=== PATIENT | male | born 1965 | race Caucasian/White ===

== ENCOUNTER 2018-07-04 15:57 | Emergency (ER) | payer OTHER ==
[~2018-07-04] VITALS: Ht 177.8 cm; Wt 68.2 kg
[2018-07-04] MEDS ORDERED: KETOROLAC TROMETHAMINE 10 MG TAB PO ONE (16:30)
--- NOTE | 2018-07-04 17:09 | REP ---
LEFT HUMERUS; TWO VIEWS: HUMERUS: There is no evidence of an acute fracture, dislocation or intrinsic bone disease. IMPRESSION: No fracture or dislocation. Electronically Signed by Padilla Puente MD 07/04/2018 11:50 P
[2018-07-04] MEDS ORDERED: KETO10TAB PO (17:19)
[2018-07-04 17:23] VITALS: BP 135/77
== END 2018-07-04 17:29 | disposition home or self-care (01) ==
LOC: M ED 15:57
DX: S46.912A Strain of unspecified muscle, fascia and tendon at shoulder and upper arm level, left arm, initial encounter (principal); X50.0XXA Overexertion from strenuous movement or load, initial encounter; Y92.018 Other place in single-family (private) house as the place of occurrence of the external cause; Z91.013 Allergy to seafood

== ENCOUNTER 2023-01-05 18:56 | Emergency (ER) | payer OTHER, SELFPAY ==
[~2023-01-05] VITALS: Ht 175.3 cm; Wt 62.7 kg
[~2023-01-05 18:56] MED LIST: KETO10TAB PO
[2023-01-05] MEDS ORDERED: IBUP80TA PO (19:20)
[2023-01-05 22:59] VITALS: BP 121/80; TEMP 97.7; O2SAT 99
== END 2023-01-06 03:45 | disposition home or self-care (01) ==
LOC: M ED 18:56
DX: S82.034A Nondisplaced transverse fracture of right patella, initial encounter for closed fracture (principal); M25.461 Effusion, right knee; W55.22XA Struck by cow, initial encounter; Y92.009 Unspecified place in unspecified non-institutional (private) residence as the place of occurrence of the external cause; Z91.013 Allergy to seafood

== ENCOUNTER 2023-02-12 10:30 | Inpatient (IN) | payer OTHER, MEDICAID ==
[~2023-02-12] VITALS: Ht 177.8 cm; Wt 45.0 kg
[~2023-02-12 10:30] MED LIST changes: +IBUP80TA PO
[2023-02-12] MEDS ORDERED: GABA-282 (10:42)
[2023-02-12 11:12] LABS: BASO % 0.4 % (0.0-1.0); EOS % 0.3 % (0.0-3.0); HEMATOCRIT 35.7 % (42.0-52.0); HEMOGLOBIN 11.5 g/dl (13.5-17.5); LYMPH # 0.9 10^3/uL (1.5-5.0); LYMPH % 13.4 % (24.0-44.0); MEAN CORPUSCULAR HEMOGLOBIN 30.3 pg (27.0-33.0); MEAN CORPUSCULAR HGB CONC 32.2 g/dl (32.0-36.5); MEAN CORPUSCULAR VOLUME 94.2 fl (80.0-96.0); MONO # 0.6 10^3/uL (0.0-0.8); MONO % 8.7 % (2.0-8.0); NEUTROPHILS # 5.2 10^3/uL (1.5-8.5); NEUTROPHILS % 76.9 % (36.0-66.0); PLATELET COUNT, AUTOMATED 416 10^3/uL (150-450); RED BLOOD COUNT 3.79 10^6/uL (4.30-6.10); WHITE BLOOD COUNT 6.8 10^3/uL (4.0-10.0)
[2023-02-12 11:38] LABS: ALKALINE PHOSPHATASE 115 U/L (46-116); ALT/SGPT 21 U/L (7.0-40); AST/SGOT 50 U/L (<34); BILIRUBIN,DIRECT 0.2 MG/DL (<0.4); BILIRUBIN,TOTAL 0.5 MG/DL (0.3-1.2); BLOOD UREA NITROGEN 17 MG/DL (9-23); CALCIUM LEVEL 8.7 MG/DL (8.5-10.1); CARBON DIOXIDE LEVEL 28 MMOL/L (20-31); CHLORIDE LEVEL 104 MMOL/L (98-107); CREATININE FOR GFR 0.64 MG/DL (0.70-1.30); GLOMERULAR FILTRATION RATE > 60.0 (>56); GLUCOSE, FASTING 81 MG/DL (60-100); POTASSIUM SERUM 4.1 MMOL/L (3.5-5.1); SODIUM LEVEL 142 MMOL/L (136-145)
[2023-02-12 11:40] LABS: THYROID STIMULATING HORMONE 2.152 uIU/ML (0.55-4.78)
[2023-02-12 12:04] LABS: RSV AMPLIFICATION NEGATIVE (NEGATIVE)
[2023-02-12] MEDS ORDERED: LIDOCAINE 2% 5ML JELLY UROJET TOP ONE (12:25)
[2023-02-12] MEDS ORDERED: MED REC IN PROGRESS XX SCH (14:15)
[2023-02-12] MEDS ORDERED: MED REC CURRENTLY UNOBTAINABLE XX SCH (14:20)
[2023-02-12 14:27] LABS: BARBITURATES URINE NEGATIVE (NEGATIVE); COCAINE METABOLITE URINE NEGATIVE (NEGATIVE); METHADONE URINE NEGATIVE (NEGATIVE); OPIATES URINE NEGATIVE (NEGATIVE); PHENCYCLIDINE URINE NEGATIVE (NEGATIVE)
[2023-02-12 14:28] LABS: AMPHETAMINES LEVEL URINE NEGATIVE (NEGATIVE); BENZODIAZEPINES URINE NEGATIVE (NEGATIVE); CANNABINOIDS URINE NEGATIVE (NEGATIVE)
[2023-02-12] MEDS: NS 1,000 ML IV SCH (14:35)
[2023-02-12 14:52] LABS: PROLACTIN 6.57 NG/ML (2.1-17.7)
[2023-02-12 14:53] LABS: VITAMIN B12 LEVEL 115 PG/ML (211-911)
[2023-02-12 15:00] VITALS: BP 124/79; TEMP 97.3; O2SAT 98
[2023-02-12] MEDS ORDERED: GABA-282 PO (15:02)
[2023-02-12 20:26] VITALS: BP 127/80; TEMP 97.2; O2SAT 96
[2023-02-12] MEDS: ENOXAPARIN 40MG/0.4ML SYRINGE (J1650 PER 10MG) SC SCH (21:52)
[2023-02-13 06:00] VITALS: BP 128/79; TEMP 97.7; O2SAT 95
[2023-02-13] MEDS: NS 1,000 ML IV SCH (10:59)
[2023-02-13] MEDS: ACETAMINOPHEN TAB 650MG DOSE (2X325MG) PO PRN ×2 (13:20→23:53)
[2023-02-13 14:00] VITALS: BP 106/64; TEMP 97.2; O2SAT 99
[2023-02-13 19:59] VITALS: BP 109/63; TEMP 96.6; O2SAT 95
[2023-02-13] MEDS: ENOXAPARIN 40MG/0.4ML SYRINGE (J1650 PER 10MG) SC SCH (21:11)
[2023-02-13 21:15] VITALS: TEMP 97.7
[2023-02-14 05:07] VITALS: BP 117/66; TEMP 97.9; O2SAT 98
[2023-02-14] MEDS: NS 1,000 ML IV SCH ×2 (05:48→22:07)
[2023-02-14] MEDS ORDERED: POTA99TA14 PO (07:06)
[2023-02-14] MEDS ORDERED: MAGN400T2 PO (07:06)
[2023-02-14] MEDS ORDERED: HOME MED LIST COMPLETE! XX SCH (07:10)
[2023-02-14 08:37] LABS: BASO % 0.3 % (0.0-1.0); EOS % 0.3 % (0.0-3.0); HEMATOCRIT 34.1 % (42.0-52.0); HEMOGLOBIN 11.2 g/dl (13.5-17.5); LYMPH % 15.2 % (24.0-44.0); MEAN CORPUSCULAR HEMOGLOBIN 29.6 pg (27.0-33.0); MEAN CORPUSCULAR HGB CONC 32.8 g/dl (32.0-36.5); MEAN CORPUSCULAR VOLUME 90.2 fl (80.0-96.0); MONO # 0.3 10^3/uL (0.0-0.8); MONO % 5.5 % (2.0-8.0); NEUTROPHILS # 4.9 10^3/uL (1.5-8.5); NEUTROPHILS % 78.4 % (36.0-66.0); PLATELET COUNT, AUTOMATED 383 10^3/uL (150-450); RED BLOOD COUNT 3.78 10^6/uL (4.30-6.10); WHITE BLOOD COUNT 6.2 10^3/uL (4.0-10.0)
[2023-02-14 08:46] LABS: ERYTHROCYTE SEDIMENTATION RATE 97 mm/hr (0-20)
[2023-02-14 09:15] LABS: ALBUMIN 2.3 G/DL (3.2-5.2); ALKALINE PHOSPHATASE 100 U/L (46-116); ALT/SGPT 17 U/L (7.0-40); AST/SGOT 26 U/L (<34); BILIRUBIN,TOTAL 0.7 MG/DL (0.3-1.2); BLOOD UREA NITROGEN 12 MG/DL (9-23); CALCIUM LEVEL 7.6 MG/DL (8.5-10.1); CARBON DIOXIDE LEVEL 25 MMOL/L (20-31); CHLORIDE LEVEL 106 MMOL/L (98-107); CREATININE FOR GFR 0.63 MG/DL (0.70-1.30); GLOMERULAR FILTRATION RATE > 60.0 (>56); GLUCOSE, FASTING 124 MG/DL (60-100); POTASSIUM SERUM 3.6 MMOL/L (3.5-5.1); PROCALCITONIN 0.08 ng/ml; SODIUM LEVEL 138 MMOL/L (136-145); TOTAL PROTEIN 5.9 G/DL (5.7-8.2)
[2023-02-14] MEDS: CYANOCOBALAMIN 500 MCG TAB PO SCH ×2 (09:49→20:38)
[2023-02-14] MEDS ORDERED: LORazepam 2 MG/ML 1ML VIAL IV STA (11:56)
[2023-02-14 12:50] VITALS: BP 124/82; TEMP 97.7; O2SAT 97
[2023-02-14] MEDS ORDERED: ISOVUE-370 76% 100ML VIAL As Ordered ONE (16:24)
[2023-02-14] MEDS ORDERED: flumazeniL 0.5MG/5ML VIAL IV STA (16:32)
[2023-02-14 17:58] LABS: PROLACTIN 6.87 NG/ML (2.1-17.7)
[2023-02-14 17:59] LABS: ALBUMIN 2.2 G/DL (3.2-5.2); ALKALINE PHOSPHATASE 96 U/L (46-116); ALT/SGPT 16 U/L (7.0-40); AST/SGOT 26 U/L (<34); BILIRUBIN,TOTAL 0.5 MG/DL (0.3-1.2); BLOOD UREA NITROGEN 11 MG/DL (9-23); CALCIUM LEVEL 7.9 MG/DL (8.5-10.1); CARBON DIOXIDE LEVEL 27 MMOL/L (20-31); CHLORIDE LEVEL 104 MMOL/L (98-107); CREATININE FOR GFR 0.58 MG/DL (0.70-1.30); GLOMERULAR FILTRATION RATE > 60.0 (>56); GLUCOSE, FASTING 96 MG/DL (60-100); POTASSIUM SERUM 3.9 MMOL/L (3.5-5.1); SODIUM LEVEL 137 MMOL/L (136-145); TOTAL PROTEIN 5.6 G/DL (5.7-8.2)
[2023-02-14 20:00] VITALS: BP 130/81; TEMP 97.5; TEMP 98.4; O2SAT 99
[2023-02-14] MEDS: ENOXAPARIN 40MG/0.4ML SYRINGE (J1650 PER 10MG) SC SCH (20:39)
[2023-02-14] MEDS: ACETAMINOPHEN TAB 650MG DOSE (2X325MG) PO PRN (20:39)
[2023-02-14 20:43] VITALS: TEMP 97.5
[2023-02-15 00:20] VITALS: BP 121/74; TEMP 97.3; O2SAT 98
[2023-02-15 06:31] VITALS: BP 114/69; TEMP 97.5; O2SAT 97
[2023-02-15] MEDS: CYANOCOBALAMIN 500 MCG TAB PO SCH (08:23)
[2023-02-15 11:30] VITALS: BP 152/76
[2023-02-15 11:47] LABS: HEMATOCRIT 33.9 % (42.0-52.0)
[2023-02-15 11:48] LABS: BASO % 0.3 % (0.0-1.0); EOS % 0.2 % (0.0-3.0); HEMATOCRIT 33.6 % (42.0-52.0); HEMOGLOBIN 11.1 g/dl (13.5-17.5); LYMPH # 0.6 10^3/uL (1.5-5.0); LYMPH % 10.4 % (24.0-44.0); MEAN CORPUSCULAR HEMOGLOBIN 30.3 pg (27.0-33.0); MEAN CORPUSCULAR VOLUME 91.8 fl (80.0-96.0); MONO # 0.2 10^3/uL (0.0-0.8); MONO % 3.6 % (2.0-8.0); NEUTROPHILS # 5.2 10^3/uL (1.5-8.5); NEUTROPHILS % 85.2 % (36.0-66.0); PLATELET COUNT, AUTOMATED 340 10^3/uL (150-450); RED BLOOD COUNT 3.66 10^6/uL (4.30-6.10); WHITE BLOOD COUNT 6.1 10^3/uL (4.0-10.0)
[2023-02-15] MEDS: LACTULOSE 20GM/30ML SYRUP UDC PO SCH ×2 (11:57→13:04)
[2023-02-15 12:00] VITALS: BP 108/62; TEMP 97.5; O2SAT 99
[2023-02-15 12:05] LABS: ERYTHROCYTE SEDIMENTATION RATE 100 mm/hr (0-20)
[2023-02-15 12:13] LABS: ALBUMIN 2.3 G/DL (3.2-5.2); ALKALINE PHOSPHATASE 99 U/L (46-116); ALT/SGPT 12 U/L (7.0-40); AST/SGOT 22 U/L (<34); BILIRUBIN,TOTAL 0.4 MG/DL (0.3-1.2); BLOOD UREA NITROGEN 11 MG/DL (9-23); CALCIUM LEVEL 7.9 MG/DL (8.5-10.1); CARBON DIOXIDE LEVEL 26 MMOL/L (20-31); CHLORIDE LEVEL 102 MMOL/L (98-107); CREATININE FOR GFR 0.61 MG/DL (0.70-1.30); GLOMERULAR FILTRATION RATE > 60.0 (>56); GLUCOSE, FASTING 103 MG/DL (60-100); POTASSIUM SERUM 4.1 MMOL/L (3.5-5.1); SODIUM LEVEL 136 MMOL/L (136-145); TOTAL PROTEIN 5.9 G/DL (5.7-8.2)
[2023-02-15 14:00] VITALS: BP 112/70; TEMP 97.3; O2SAT 97
[2023-02-15 18:43] LABS: PROCALCITONIN 0.31 ng/ml
[2023-02-15] MEDS: ENOXAPARIN 40MG/0.4ML SYRINGE (J1650 PER 10MG) SC SCH (21:17)
[2023-02-15 21:20] VITALS: BP 100/65; TEMP 98.1; O2SAT 95
[2023-02-15] MEDS: NS 1,000 ML IV SCH ×2 (22:35→22:39)
[2023-02-16 06:05] VITALS: BP 89/54; TEMP 97.2; O2SAT 99
[2023-02-16 06:19] VITALS: BP 92/50; O2SAT 97
[2023-02-16 07:48] LABS: HEMOGLOBIN 10.4 g/dl (13.5-17.5); MEAN CORPUSCULAR HEMOGLOBIN 30.1 pg (27.0-33.0); MEAN CORPUSCULAR HGB CONC 32.5 g/dl (32.0-36.5); MEAN CORPUSCULAR VOLUME 92.5 fl (80.0-96.0); PLATELET COUNT, AUTOMATED 296 10^3/uL (150-450); RED BLOOD COUNT 3.46 10^6/uL (4.30-6.10); WHITE BLOOD COUNT 9.6 10^3/uL (4.0-10.0)
[2023-02-16 08:15] LABS: BLOOD UREA NITROGEN 11 MG/DL (9-23); CALCIUM LEVEL 7.8 MG/DL (8.3-10.6); CARBON DIOXIDE LEVEL 29 MMOL/L (20-31); CHLORIDE LEVEL 104 MMOL/L (98-107); CREATININE FOR GFR 0.69 MG/DL (0.70-1.30); GLOMERULAR FILTRATION RATE > 60.0 (>49); GLUCOSE, FASTING 94 MG/DL (74-106); POTASSIUM SERUM 3.9 MMOL/L (3.5-5.1); SODIUM LEVEL 139 MMOL/L (136-145)
[2023-02-16] MEDS ORDERED: NS 1,000 ML IV ONE (09:55)
[2023-02-16] MEDS: CYANOCOBALAMIN 1,000MCG/ML 1ML VIAL IM SCH (10:03)
[2023-02-16 11:26] LABS: PROCALCITONIN 48.43 ng/ml
[2023-02-16 14:00] VITALS: BP 101/58; TEMP 97.2; O2SAT 96
[2023-02-16 20:07] VITALS: BP 102/60; TEMP 97.5; O2SAT 100
[2023-02-16] MEDS: ENOXAPARIN 40MG/0.4ML SYRINGE (J1650 PER 10MG) SC SCH (20:32)
[2023-02-16 22:34] VITALS: BP 117/66; TEMP 98.1; O2SAT 99
[2023-02-16] MEDS ORDERED: QUEtiapine FUMARATE 25 MG TAB PO ONE (23:00)
[2023-02-17 05:41] VITALS: BP 110/69; TEMP 97.7; O2SAT 99
[2023-02-17 06:01] LABS: HEMATOCRIT 32.3 % (42.0-52.0); HEMOGLOBIN 10.9 g/dl (13.5-17.5); MEAN CORPUSCULAR HEMOGLOBIN 30.1 pg (27.0-33.0); MEAN CORPUSCULAR HGB CONC 33.7 g/dl (32.0-36.5); MEAN CORPUSCULAR VOLUME 89.2 fl (80.0-96.0); PLATELET COUNT, AUTOMATED 278 10^3/uL (150-450); RED BLOOD COUNT 3.62 10^6/uL (4.30-6.10); WHITE BLOOD COUNT 5.9 10^3/uL (4.0-10.0)
[2023-02-17] MEDS ORDERED: NS 1,000 ML IV ONE (08:00)
[2023-02-17] MEDS: CYANOCOBALAMIN 1,000MCG/ML 1ML VIAL IM SCH (08:13)
[2023-02-17] MEDS: DONEPEZIL 5 MG TAB PO SCH (08:13)
[2023-02-17 08:54] LABS: INR 1.08; PROTHROMBIN TIME 13.7 SECONDS (12.5-14.5)
[2023-02-17 08:55] LABS: PARTIAL THROMBOPLASTIN TIME 35.6 SECONDS (24.8-34.2)
[2023-02-17 11:50] VITALS: BP 113/66; TEMP 97; O2SAT 100
[2023-02-17 14:00] VITALS: BP 112/64; TEMP 97.7; O2SAT 100
[2023-02-17 14:13] LABS: BLOOD UREA NITROGEN 13 MG/DL (7-21); CARBON DIOXIDE LEVEL 20 MEQ/L (22-30); CHLORIDE LEVEL 103 MEQ/L (98-107); CREATININE FOR GFR 0.6 MG/DL (0.7-1.5); GLOMERULAR FILTRATION RATE > 60.0 (>49); GLUCOSE, FASTING 103 MG/DL; POTASSIUM SERUM 3.9 MEQ/L (3.6-5.0); SODIUM LEVEL 137 MEQ/L (134-153)
[2023-02-17 14:14] LABS: CALCIUM LEVEL 8.2 MG/DL (8.8-10.2)
[2023-02-17 19:40] VITALS: BP 108/66; TEMP 97.8; O2SAT 98
[2023-02-17] MEDS: ACETAMINOPHEN TAB 650MG DOSE (2X325MG) PO PRN (22:26)
[2023-02-18 01:49] VITALS: BP 119/71; TEMP 97.7; O2SAT 99
[2023-02-18 05:55] VITALS: BP 112/73; TEMP 97.9; O2SAT 99
[2023-02-18 06:00] LABS: BASO % 0.4 % (0.0-1.0); EOS % 0.6 % (0.0-3.0); HEMATOCRIT 33.6 % (42.0-52.0); HEMOGLOBIN 11.5 g/dl (13.5-17.5); LYMPH # 1.2 10^3/uL (1.5-5.0); LYMPH % 23.8 % (24.0-44.0); MEAN CORPUSCULAR HEMOGLOBIN 29.5 pg (27.0-33.0); MEAN CORPUSCULAR HGB CONC 34.2 g/dl (32.0-36.5); MEAN CORPUSCULAR VOLUME 86.2 fl (80.0-96.0); MONO # 0.5 10^3/uL (0.0-0.8); MONO % 10.3 % (2.0-8.0); NEUTROPHILS # 3.2 10^3/uL (1.5-8.5); NEUTROPHILS % 64.7 % (36.0-66.0); PLATELET COUNT, AUTOMATED 330 10^3/uL (150-450)
[2023-02-18 06:07] LABS: ERYTHROCYTE SEDIMENTATION RATE 91 mm/hr (0-20)
[2023-02-18] MEDS: DONEPEZIL 5 MG TAB PO SCH (09:56)
[2023-02-18] MEDS: CYANOCOBALAMIN 1,000MCG/ML 1ML VIAL IM SCH (09:56)
[2023-02-18] MEDS: ACETAMINOPHEN TAB 650MG DOSE (2X325MG) PO PRN (21:00)
[2023-02-19 05:30] VITALS: BP 113/74; TEMP 98.2; O2SAT 100
[2023-02-19 05:50] LABS: HEMATOCRIT 35.3 % (42.0-52.0); HEMOGLOBIN 11.9 g/dl (13.5-17.5); MEAN CORPUSCULAR HEMOGLOBIN 29.5 pg (27.0-33.0); MEAN CORPUSCULAR HGB CONC 33.7 g/dl (32.0-36.5); MEAN CORPUSCULAR VOLUME 87.6 fl (80.0-96.0); PLATELET COUNT, AUTOMATED 367 10^3/uL (150-450); RED BLOOD COUNT 4.03 10^6/uL (4.30-6.10); WHITE BLOOD COUNT 4.9 10^3/uL (4.0-10.0)
[2023-02-19] MEDS: DONEPEZIL 5 MG TAB PO SCH (08:24)
[2023-02-19] MEDS: CYANOCOBALAMIN 1,000MCG/ML 1ML VIAL IM SCH (08:24)
[2023-02-19 09:57] LABS: BLOOD UREA NITROGEN 9 MG/DL (7-21); CALCIUM LEVEL 8.3 MG/DL (8.8-10.2); CARBON DIOXIDE LEVEL 18 MEQ/L (22-30); CHLORIDE LEVEL 105 MEQ/L (98-107); CREATININE FOR GFR 0.5 MG/DL (0.7-1.5); GLOMERULAR FILTRATION RATE > 60.0 (>49); GLUCOSE, FASTING 113 MG/DL; POTASSIUM SERUM 3.5 MEQ/L (3.6-5.0); SODIUM LEVEL 138 MEQ/L (134-153)
[2023-02-19] MEDS: ACETAMINOPHEN TAB 650MG DOSE (2X325MG) PO PRN (21:40)
[2023-02-20 04:54] VITALS: BP 118/77; TEMP 96.8; O2SAT 98
[2023-02-20 05:52] LABS: HEMATOCRIT 38.2 % (42.0-52.0); HEMOGLOBIN 12.4 g/dl (13.5-17.5); MEAN CORPUSCULAR HEMOGLOBIN 28.8 pg (27.0-33.0); MEAN CORPUSCULAR HGB CONC 32.5 g/dl (32.0-36.5); MEAN CORPUSCULAR VOLUME 88.8 fl (80.0-96.0); PLATELET COUNT, AUTOMATED 446 10^3/uL (150-450)
[2023-02-20] MEDS: DONEPEZIL 5 MG TAB PO SCH (09:12)
[2023-02-20] MEDS: CYANOCOBALAMIN 1,000MCG/ML 1ML VIAL IM SCH (09:12)
[2023-02-20] MEDS ORDERED: LevoFLOXacin 750 MG TABLET PO SCH (11:00)
[2023-02-20 15:57] LABS: BLOOD UREA NITROGEN 9 MG/DL (7-21); CARBON DIOXIDE LEVEL 21 MEQ/L (22-30); CHLORIDE LEVEL 101 MEQ/L (98-107); CREATININE FOR GFR 0.6 MG/DL (0.7-1.5); GLOMERULAR FILTRATION RATE > 60.0 (>49); GLUCOSE, FASTING 105 MG/DL; POTASSIUM SERUM 3.9 MEQ/L (3.6-5.0); SODIUM LEVEL 138 MEQ/L (134-153)
[2023-02-20 20:08] LABS: Creatinine(Crt),U 0.15 g/L (0.30-3.00)
[2023-02-21] VITALS (10 sets, daily range): BP systolic 108–118; BP diastolic 69–78; TEMP 97–97.8; O2SAT 94–100
[2023-02-21 06:01] LABS: HEMATOCRIT 38.2 % (42.0-52.0); HEMOGLOBIN 12.9 g/dl (13.5-17.5); MEAN CORPUSCULAR HEMOGLOBIN 29.7 pg (27.0-33.0); MEAN CORPUSCULAR HGB CONC 33.8 g/dl (32.0-36.5); PLATELET COUNT, AUTOMATED 521 10^3/uL (150-450); RED BLOOD COUNT 4.34 10^6/uL (4.30-6.10)
[2023-02-21 06:21] LABS: BLOOD UREA NITROGEN 12 MG/DL (9-23); CALCIUM LEVEL 8.8 MG/DL (8.3-10.6); CARBON DIOXIDE LEVEL 26 MMOL/L (20-31); CHLORIDE LEVEL 102 MMOL/L (98-107); CREATININE FOR GFR 0.69 MG/DL (0.70-1.30); GLOMERULAR FILTRATION RATE > 60.0 (>49); GLUCOSE, FASTING 110 MG/DL (74-106); POTASSIUM SERUM 4.2 MMOL/L (3.5-5.1); SODIUM LEVEL 138 MMOL/L (136-145)
[2023-02-21 07:37] LABS: ALBUMIN 2.8 G/DL (3.2-5.2); ALKALINE PHOSPHATASE 124 U/L (46-116); ALT/SGPT 19 U/L (7.0-40); AST/SGOT 27 U/L (<34); BILIRUBIN,DIRECT 0.1 MG/DL (<0.4); BILIRUBIN,TOTAL 0.3 MG/DL (0.3-1.2); TOTAL PROTEIN 6.7 G/DL (5.7-8.2)
[2023-02-21 07:45] LABS: PROCALCITONIN 1.92 ng/ml
[2023-02-21] MEDS: CYANOCOBALAMIN 1,000MCG/ML 1ML VIAL IM SCH (08:17)
[2023-02-21] MEDS: DONEPEZIL 5 MG TAB PO SCH (08:17)
[2023-02-21 08:19] LABS: BASO % 0.4 % (0.0-1.0); EOS % 0.4 % (0.0-3.0); LYMPH % 20.8 % (24.0-44.0); MONO # 0.8 10^3/uL (0.0-0.8); MONO % 8.6 % (2.0-8.0); NEUTROPHILS # 6.8 10^3/uL (1.5-8.5); NEUTROPHILS % 69.3 % (36.0-66.0)
[2023-02-21 10:56] LABS: FOLATE 14.68 NG/ML (>5.4)
[2023-02-21 10:59] LABS: VITAMIN B12 LEVEL > 2000 PG/ML (211-911)
[2023-02-21 11:30] LABS: HEPATITIS B CORE ANTIBODY IGM NEGATIVE (NEGATIVE); HEPATITIS C VIRUS ABY INDEX 0.07 INDEX (<0.8)
[2023-02-21 14:32] LABS: BLOOD UREA NITROGEN 9 MG/DL (7-21); CALCIUM LEVEL 8.8 MG/DL (8.8-10.2); CARBON DIOXIDE LEVEL 23 MEQ/L (22-30); CHLORIDE LEVEL 102 MEQ/L (98-107); CREATININE FOR GFR 0.5 MG/DL (0.7-1.5); GLOMERULAR FILTRATION RATE > 60.0 (>49); GLUCOSE, FASTING 104 MG/DL; POTASSIUM SERUM 3.6 MEQ/L (3.6-5.0); SODIUM LEVEL 138 MEQ/L (134-153)
[2023-02-21] MEDS: LevoFLOXacin 750 MG TABLET PO SCH (15:35)
[2023-02-21] MEDS ORDERED: fentaNYL 100 MCG/2 ML INJECTION As Ordered ONE (17:43)
[2023-02-21] MEDS ORDERED: propofoL 200 MG/20 ML VIAL As Ordered ONE (17:44)
[2023-02-21 19:44] LABS: CSF TUBE# CELL CNT TUBE 1
[2023-02-21 19:45] LABS: APPEARANCE, CSF CLEAR (CLEAR); COLOR, CSF COLORLESS (COLORLESS)
[2023-02-21 19:46] LABS: APPEARANCE, CSF CLEAR (CLEAR); COLOR, CSF COLORLESS (COLORLESS); CSF TUBE# CELL CNT TUBE 4
[2023-02-21 19:54] LABS: CSF TUBE# TP TUBE 2; TOTAL PROTEIN,CSF 27.1 MG/DL (15-45)
[2023-02-21 19:57] LABS: CSF TUBE# GLU TUBE 2
[2023-02-22 00:20] VITALS: BP 114/78; TEMP 97.2; O2SAT 97
[2023-02-22] MEDS: LevoFLOXacin 750 MG TABLET PO SCH (05:05)
[2023-02-22 05:07] VITALS: BP 111/71; TEMP 97.4; O2SAT 98
[2023-02-22 05:45] LABS: BASO % 0.4 % (0.0-1.0); EOS % 0.3 % (0.0-3.0); HEMOGLOBIN 12.5 g/dl (13.5-17.5); LYMPH # 1.8 10^3/uL (1.5-5.0); LYMPH % 16.8 % (24.0-44.0); MEAN CORPUSCULAR HEMOGLOBIN 29.2 pg (27.0-33.0); MEAN CORPUSCULAR HGB CONC 32.9 g/dl (32.0-36.5); MEAN CORPUSCULAR VOLUME 88.8 fl (80.0-96.0); MONO # 0.9 10^3/uL (0.0-0.8); NEUTROPHILS # 8.1 10^3/uL (1.5-8.5); PLATELET COUNT, AUTOMATED 513 10^3/uL (150-450); RED BLOOD COUNT 4.28 10^6/uL (4.30-6.10); WHITE BLOOD COUNT 10.9 10^3/uL (4.0-10.0)
[2023-02-22 06:08] LABS: BLOOD UREA NITROGEN 14 MG/DL (9-23); CALCIUM LEVEL 8.8 MG/DL (8.3-10.6); CARBON DIOXIDE LEVEL 27 MMOL/L (20-31); CHLORIDE LEVEL 102 MMOL/L (98-107); CREATININE FOR GFR 0.68 MG/DL (0.70-1.30); GLOMERULAR FILTRATION RATE > 60.0 (>49); GLUCOSE, FASTING 112 MG/DL (74-106); SODIUM LEVEL 138 MMOL/L (136-145)
[2023-02-22] MEDS: DONEPEZIL 5 MG TAB PO SCH (08:11)
[2023-02-22] MEDS: CYANOCOBALAMIN 250 MCG TABLET PO SCH (08:12)
[2023-02-22 10:00] VITALS: BP 116/78; TEMP 97; O2SAT 90
[2023-02-22] MEDS: ENOXAPARIN 30MG/0.3ML SYRINGE (J1650 PER 10MG) SC SCH (10:19)
[2023-02-22 12:07] LABS: VOLTAGE-GATED POTASSIUM CHANNE 0 pmol/L (0-31)
[2023-02-22 14:00] VITALS: BP 101/64; TEMP 97; O2SAT 94
[2023-02-22] MEDS: ACETAMINOPHEN TAB 650MG DOSE (2X325MG) PO PRN ×2 (14:32→19:56)
[2023-02-22 18:00] VITALS: BP 102/64; TEMP 97.2; O2SAT 93
[2023-02-23] MEDS: ACETAMINOPHEN TAB 650MG DOSE (2X325MG) PO PRN ×4 (00:20→19:47)
[2023-02-23 04:07] LABS: ARSENIC BLOOD 2 ug/L (0-9); HOMOCYST(E)INE SERUM 35.4 umol/L (0.0-14.5); LEAD BLOOD 1.1 ug/dL (0.0-3.4); MERCURY BLOOD <1.0 ug/L (0.0-14.9); Methylmalonic Acid 694 nmol/L (0-378)
[2023-02-23] MEDS: LevoFLOXacin 750 MG TABLET PO SCH (05:28)
[2023-02-23 06:00] VITALS: BP 103/64; TEMP 97; O2SAT 96
[2023-02-23 06:54] LABS: BASO % 0.4 % (0.0-1.0); EOS # 0.1 10^3/uL (0.0-0.5); EOS % 0.7 % (0.0-3.0); HEMATOCRIT 35.7 % (42.0-52.0); HEMOGLOBIN 11.7 g/dl (13.5-17.5); LYMPH # 1.9 10^3/uL (1.5-5.0); LYMPH % 21.4 % (24.0-44.0); MEAN CORPUSCULAR HEMOGLOBIN 29.6 pg (27.0-33.0); MEAN CORPUSCULAR HGB CONC 32.8 g/dl (32.0-36.5); MEAN CORPUSCULAR VOLUME 90.4 fl (80.0-96.0); MONO # 0.8 10^3/uL (0.0-0.8); NEUTROPHILS # 6.1 10^3/uL (1.5-8.5); NEUTROPHILS % 68.1 % (36.0-66.0); PLATELET COUNT, AUTOMATED 521 10^3/uL (150-450); RED BLOOD COUNT 3.95 10^6/uL (4.30-6.10)
[2023-02-23 06:58] LABS: PROCALCITONIN 12.3 NG/ML (0.0-0.08)
[2023-02-23 07:15] LABS: BLOOD UREA NITROGEN 15 MG/DL (9-23); CALCIUM LEVEL 8.7 MG/DL (8.3-10.6); CARBON DIOXIDE LEVEL 26 MMOL/L (20-31); CHLORIDE LEVEL 101 MMOL/L (98-107); CREATININE FOR GFR 0.64 MG/DL (0.70-1.30); GLOMERULAR FILTRATION RATE > 60.0 (>49); GLUCOSE, FASTING 100 MG/DL (74-106); SODIUM LEVEL 137 MMOL/L (136-145)
[2023-02-23] MEDS: ENOXAPARIN 30MG/0.3ML SYRINGE (J1650 PER 10MG) SC SCH (08:32)
[2023-02-23] MEDS: DONEPEZIL 5 MG TAB PO SCH (08:32)
[2023-02-23] MEDS: CYANOCOBALAMIN 250 MCG TABLET PO SCH (08:32)
[2023-02-24 05:45] LABS: BASO % 0.4 % (0.0-1.0); EOS % 0.2 % (0.0-3.0); HEMATOCRIT 37.2 % (42.0-52.0); HEMOGLOBIN 12.4 g/dl (13.5-17.5); LYMPH # 1.9 10^3/uL (1.5-5.0); LYMPH % 18.9 % (24.0-44.0); MEAN CORPUSCULAR HEMOGLOBIN 29.2 pg (27.0-33.0); MEAN CORPUSCULAR HGB CONC 33.3 g/dl (32.0-36.5); MEAN CORPUSCULAR VOLUME 87.5 fl (80.0-96.0); MONO # 0.7 10^3/uL (0.0-0.8); MONO % 6.8 % (2.0-8.0); NEUTROPHILS # 7.5 10^3/uL (1.5-8.5); NEUTROPHILS % 72.9 % (36.0-66.0); PLATELET COUNT, AUTOMATED 615 10^3/uL (150-450); RED BLOOD COUNT 4.25 10^6/uL (4.30-6.10); WHITE BLOOD COUNT 10.2 10^3/uL (4.0-10.0)
[2023-02-24 06:00] VITALS: BP 104/65; TEMP 97; O2SAT 98
[2023-02-24 06:19] LABS: BLOOD UREA NITROGEN 17 MG/DL (9-23); CALCIUM LEVEL 8.7 MG/DL (8.3-10.6); CARBON DIOXIDE LEVEL 27 MMOL/L (20-31); CHLORIDE LEVEL 101 MMOL/L (98-107); CREATININE FOR GFR 0.73 MG/DL (0.70-1.30); GLOMERULAR FILTRATION RATE > 60.0 (>49); GLUCOSE, FASTING 109 MG/DL (74-106); POTASSIUM SERUM 4.3 MMOL/L (3.5-5.1); SODIUM LEVEL 138 MMOL/L (136-145)
[2023-02-24 06:22] LABS: VITAMIN B12 LEVEL 884 PG/ML (211-911)
[2023-02-24] MEDS: DONEPEZIL 5 MG TAB PO SCH (08:45)
[2023-02-24] MEDS: ENOXAPARIN 30MG/0.3ML SYRINGE (J1650 PER 10MG) SC SCH (08:45)
[2023-02-24] MEDS: CYANOCOBALAMIN 250 MCG TABLET PO SCH (08:45)
[2023-02-24] MEDS: ACETAMINOPHEN TAB 650MG DOSE (2X325MG) PO PRN (08:48)
[2023-02-25 05:14] VITALS: BP 106/67; TEMP 97.2; O2SAT 96
[2023-02-25 06:25] LABS: BASO % 0.5 % (0.0-1.0); EOS % 0.4 % (0.0-3.0); HEMATOCRIT 33.2 % (42.0-52.0); LYMPH # 1.6 10^3/uL (1.5-5.0); LYMPH % 21.1 % (24.0-44.0); MEAN CORPUSCULAR HEMOGLOBIN 29.6 pg (27.0-33.0); MEAN CORPUSCULAR HGB CONC 33.1 g/dl (32.0-36.5); MEAN CORPUSCULAR VOLUME 89.2 fl (80.0-96.0); MONO # 0.5 10^3/uL (0.0-0.8); MONO % 5.9 % (2.0-8.0); NEUTROPHILS # 5.5 10^3/uL (1.5-8.5); NEUTROPHILS % 71.7 % (36.0-66.0); PLATELET COUNT, AUTOMATED 538 10^3/uL (150-450); RED BLOOD COUNT 3.72 10^6/uL (4.30-6.10); WHITE BLOOD COUNT 7.6 10^3/uL (4.0-10.0)
[2023-02-25 06:40] LABS: BLOOD UREA NITROGEN 15 MG/DL (9-23); CALCIUM LEVEL 8.7 MG/DL (8.3-10.6); CARBON DIOXIDE LEVEL 25 MMOL/L (20-31); CHLORIDE LEVEL 101 MMOL/L (98-107); CREATININE FOR GFR 0.61 MG/DL (0.70-1.30); GLOMERULAR FILTRATION RATE > 60.0 (>49); GLUCOSE, FASTING 100 MG/DL (74-106); POTASSIUM SERUM 3.7 MMOL/L (3.5-5.1); SODIUM LEVEL 137 MMOL/L (136-145)
[2023-02-25] MEDS: CYANOCOBALAMIN 250 MCG TABLET PO SCH (08:15)
[2023-02-25] MEDS: ENOXAPARIN 30MG/0.3ML SYRINGE (J1650 PER 10MG) SC SCH (08:16)
[2023-02-25] MEDS: DONEPEZIL 5 MG TAB PO SCH (08:16)
[2023-02-25] MEDS ORDERED: QUEtiapine FUMARATE 25 MG TAB PO ONE (22:15)
[2023-02-26 06:00] VITALS: BP 107/68; TEMP 97.2; O2SAT 94
[2023-02-26 06:28] LABS: BASO % 0.3 % (0.0-1.0); EOS % 0.2 % (0.0-3.0); HEMATOCRIT 33.5 % (42.0-52.0); HEMOGLOBIN 11.1 g/dl (13.5-17.5); LYMPH # 1.4 10^3/uL (1.5-5.0); LYMPH % 15.6 % (24.0-44.0); MEAN CORPUSCULAR HEMOGLOBIN 29.5 pg (27.0-33.0); MEAN CORPUSCULAR HGB CONC 33.1 g/dl (32.0-36.5); MEAN CORPUSCULAR VOLUME 89.1 fl (80.0-96.0); MONO # 0.6 10^3/uL (0.0-0.8); MONO % 6.1 % (2.0-8.0); NEUTROPHILS # 7.1 10^3/uL (1.5-8.5); NEUTROPHILS % 77.4 % (36.0-66.0); PLATELET COUNT, AUTOMATED 569 10^3/uL (150-450); RED BLOOD COUNT 3.76 10^6/uL (4.30-6.10); WHITE BLOOD COUNT 9.2 10^3/uL (4.0-10.0)
[2023-02-26 06:53] LABS: BLOOD UREA NITROGEN 14 MG/DL (9-23); CALCIUM LEVEL 8.6 MG/DL (8.3-10.6); CARBON DIOXIDE LEVEL 26 MMOL/L (20-31); CHLORIDE LEVEL 101 MMOL/L (98-107); CREATININE FOR GFR 0.66 MG/DL (0.70-1.30); GLOMERULAR FILTRATION RATE > 60.0 (>49); GLUCOSE, FASTING 111 MG/DL (74-106); MAGNESIUM LEVEL 1.9 MG/DL (1.8-2.4); POTASSIUM SERUM 4.1 MMOL/L (3.5-5.1); SODIUM LEVEL 137 MMOL/L (136-145)
[2023-02-26] MEDS: DONEPEZIL 5 MG TAB PO SCH (08:51)
[2023-02-26] MEDS: ENOXAPARIN 30MG/0.3ML SYRINGE (J1650 PER 10MG) SC SCH ×2 (08:52→09:00)
[2023-02-26] MEDS: CYANOCOBALAMIN 250 MCG TABLET PO SCH (08:52)
[2023-02-27 04:06] LABS: Methylmalonic Acid 225 nmol/L (0-378)
[2023-02-27 05:30] VITALS: BP 103/65; TEMP 97; O2SAT 100
[2023-02-27 06:17] LABS: BASO % 0.3 % (0.0-1.0); EOS % 0.3 % (0.0-3.0); HEMATOCRIT 34.8 % (42.0-52.0); HEMOGLOBIN 11.5 g/dl (13.5-17.5); LYMPH # 1.5 10^3/uL (1.5-5.0); LYMPH % 14.4 % (24.0-44.0); MEAN CORPUSCULAR HEMOGLOBIN 28.8 pg (27.0-33.0); MEAN CORPUSCULAR VOLUME 87.2 fl (80.0-96.0); MONO # 0.6 10^3/uL (0.0-0.8); MONO % 5.8 % (2.0-8.0); NEUTROPHILS % 78.8 % (36.0-66.0); PLATELET COUNT, AUTOMATED 601 10^3/uL (150-450); RED BLOOD COUNT 3.99 10^6/uL (4.30-6.10); WHITE BLOOD COUNT 10.1 10^3/uL (4.0-10.0)
[2023-02-27 06:55] LABS: BLOOD UREA NITROGEN 15 MG/DL (9-23); CARBON DIOXIDE LEVEL 26 MMOL/L (20-31); CHLORIDE LEVEL 100 MMOL/L (98-107); CREATININE FOR GFR 0.59 MG/DL (0.70-1.30); GLOMERULAR FILTRATION RATE > 60.0 (>49); GLUCOSE, FASTING 108 MG/DL (74-106); MAGNESIUM LEVEL 1.9 MG/DL (1.8-2.4); POTASSIUM SERUM 4.3 MMOL/L (3.5-5.1); SODIUM LEVEL 137 MMOL/L (136-145)
[2023-02-27 06:57] LABS: VITAMIN B12 LEVEL 483 PG/ML (211-911)
[2023-02-27] MEDS: ENOXAPARIN 30MG/0.3ML SYRINGE (J1650 PER 10MG) SC SCH (08:48)
[2023-02-27] MEDS: DONEPEZIL 5 MG TAB PO SCH (08:49)
[2023-02-27] MEDS: CYANOCOBALAMIN 250 MCG TABLET PO SCH (08:49)
[2023-02-27] MEDS: ACETAMINOPHEN TAB 650MG DOSE (2X325MG) PO PRN ×2 (08:49→13:36)
[2023-02-27 09:58] LABS: C REACTIVE PROTEIN QUANTITATIV 97.56 MG/L (1.00-3.00)
[2023-02-28 06:00] VITALS: BP 106/82; TEMP 97; O2SAT 99
[2023-02-28 06:10] LABS: BASO # 0.1 10^3/uL (0.0-0.2); BASO % 0.6 % (0.0-1.0); EOS # 0.1 10^3/uL (0.0-0.5); EOS % 0.9 % (0.0-3.0); HEMATOCRIT 34.3 % (42.0-52.0); HEMOGLOBIN 11.2 g/dl (13.5-17.5); LYMPH # 1.7 10^3/uL (1.5-5.0); MEAN CORPUSCULAR HGB CONC 32.7 g/dl (32.0-36.5); MEAN CORPUSCULAR VOLUME 88.9 fl (80.0-96.0); MONO # 0.6 10^3/uL (0.0-0.8); NEUTROPHILS # 7.3 10^3/uL (1.5-8.5); NEUTROPHILS % 75.3 % (36.0-66.0); PLATELET COUNT, AUTOMATED 582 10^3/uL (150-450); RED BLOOD COUNT 3.86 10^6/uL (4.30-6.10); WHITE BLOOD COUNT 9.7 10^3/uL (4.0-10.0)
[2023-02-28 06:34] LABS: BLOOD UREA NITROGEN 17 MG/DL (9-23); CALCIUM LEVEL 8.9 MG/DL (8.3-10.6); CARBON DIOXIDE LEVEL 26 MMOL/L (20-31); CHLORIDE LEVEL 100 MMOL/L (98-107); CREATININE FOR GFR 0.64 MG/DL (0.70-1.30); GLOMERULAR FILTRATION RATE > 60.0 (>49); GLUCOSE, FASTING 105 MG/DL (74-106); POTASSIUM SERUM 4.3 MMOL/L (3.5-5.1); SODIUM LEVEL 135 MMOL/L (136-145)
[2023-02-28] MEDS: CYANOCOBALAMIN 250 MCG TABLET PO SCH (08:34)
[2023-02-28] MEDS: ENOXAPARIN 30MG/0.3ML SYRINGE (J1650 PER 10MG) SC SCH (08:34)
[2023-02-28] MEDS: DONEPEZIL 5 MG TAB PO SCH (08:34)
[2023-02-28] MEDS: ACETAMINOPHEN TAB 650MG DOSE (2X325MG) PO PRN (08:34)
[2023-03-01 05:00] VITALS: BP 111/82; TEMP 96.8; O2SAT 100
[2023-03-01] MEDS: DONEPEZIL 5 MG TAB PO SCH (09:06)
[2023-03-01] MEDS: CYANOCOBALAMIN 250 MCG TABLET PO SCH (09:06)
[2023-03-01] MEDS: ENOXAPARIN 30MG/0.3ML SYRINGE (J1650 PER 10MG) SC SCH (09:06)
[2023-03-01] MEDS ORDERED: HALOPERIDOL 5MG/ML 1ML VIAL IM PRN (12:00)
[2023-03-01] MEDS ORDERED: LORazepam 2 MG TAB PO PRN (12:00)
[2023-03-01] MEDS ORDERED: LORazepam 2 MG/ML 1ML VIAL IM PRN (12:00)
[2023-03-01 14:10] LABS: VITAMIN B1 LEVEL WHOLE BLOOD 134.5 nmol/L (66.5-200.0)
[2023-03-01] MEDS ORDERED: flumazeniL 0.5MG/5ML VIAL IV ONE (15:55)
[2023-03-01] MEDS ORDERED: flumazeniL 0.5MG/5ML VIAL IV PRN (16:00)
[2023-03-02] MEDS: diphenhydrAMINE 50MG/ML VIAL IM PRN ×3 (01:32→22:16)
[2023-03-02 06:16] VITALS: BP 108/76; TEMP 97.3; O2SAT 96
[2023-03-02] MEDS: DONEPEZIL 5 MG TAB PO SCH (08:19)
[2023-03-02] MEDS: ENOXAPARIN 30MG/0.3ML SYRINGE (J1650 PER 10MG) SC SCH (08:19)
[2023-03-02] MEDS: CYANOCOBALAMIN 250 MCG TABLET PO SCH (08:19)
[2023-03-03 05:22] VITALS: BP 152/90; TEMP 97.2; O2SAT 99
[2023-03-03 05:58] LABS: HEMATOCRIT 34.8 % (42.0-52.0); HEMOGLOBIN 11.4 g/dl (13.5-17.5); MEAN CORPUSCULAR HEMOGLOBIN 28.7 pg (27.0-33.0); MEAN CORPUSCULAR HGB CONC 32.8 g/dl (32.0-36.5); MEAN CORPUSCULAR VOLUME 87.7 fl (80.0-96.0); PLATELET COUNT, AUTOMATED 544 10^3/uL (150-450); RED BLOOD COUNT 3.97 10^6/uL (4.30-6.10); WHITE BLOOD COUNT 8.1 10^3/uL (4.0-10.0)
[2023-03-03] MEDS: CYANOCOBALAMIN 250 MCG TABLET PO SCH (08:28)
[2023-03-03] MEDS: ENOXAPARIN 30MG/0.3ML SYRINGE (J1650 PER 10MG) SC SCH (08:28)
[2023-03-03] MEDS: DONEPEZIL 5 MG TAB PO SCH (08:28)
[2023-03-03] MEDS: ACETAMINOPHEN TAB 650MG DOSE (2X325MG) PO PRN ×2 (08:31→20:21)
[2023-03-03] MEDS ORDERED: SENOKOT S TAB PO ONE (20:15)
[2023-03-04 05:20] VITALS: BP 111/81; TEMP 97; O2SAT 100
[2023-03-04] MEDS: ENOXAPARIN 30MG/0.3ML SYRINGE (J1650 PER 10MG) SC SCH (08:00)
[2023-03-04] MEDS: ACETAMINOPHEN TAB 650MG DOSE (2X325MG) PO PRN (08:01)
[2023-03-04] MEDS: MIRALAX *UNIT DOSE* 17GM PACKET PO SCH (08:01)
[2023-03-04] MEDS: CYANOCOBALAMIN 250 MCG TABLET PO SCH (08:01)
[2023-03-04] MEDS: DONEPEZIL 5 MG TAB PO SCH (08:01)
[2023-03-05 04:50] VITALS: BP 116/84; TEMP 97.5; O2SAT 99
[2023-03-05] MEDS: MIRALAX *UNIT DOSE* 17GM PACKET PO SCH (08:26)
[2023-03-05] MEDS: ENOXAPARIN 30MG/0.3ML SYRINGE (J1650 PER 10MG) SC SCH (08:27)
[2023-03-05] MEDS: CYANOCOBALAMIN 250 MCG TABLET PO SCH (08:27)
[2023-03-05] MEDS: DONEPEZIL 5 MG TAB PO SCH (08:27)
[2023-03-05] MEDS: ACETAMINOPHEN TAB 650MG DOSE (2X325MG) PO PRN ×2 (08:28→22:42)
[2023-03-06 05:09] VITALS: BP 118/81; TEMP 97.5; O2SAT 93
[2023-03-06 06:24] LABS: HEMATOCRIT 35.4 % (42.0-52.0); HEMOGLOBIN 11.7 g/dl (13.5-17.5); MEAN CORPUSCULAR HEMOGLOBIN 28.7 pg (27.0-33.0); MEAN CORPUSCULAR HGB CONC 33.1 g/dl (32.0-36.5); PLATELET COUNT, AUTOMATED 504 10^3/uL (150-450); RED BLOOD COUNT 4.07 10^6/uL (4.30-6.10); WHITE BLOOD COUNT 8.4 10^3/uL (4.0-10.0)
[2023-03-06] MEDS: CYANOCOBALAMIN 250 MCG TABLET PO SCH (10:28)
[2023-03-06] MEDS: DONEPEZIL 5 MG TAB PO SCH (10:29)
[2023-03-06] MEDS: ENOXAPARIN 30MG/0.3ML SYRINGE (J1650 PER 10MG) SC SCH (10:29)
[2023-03-06] MEDS: MIRALAX *UNIT DOSE* 17GM PACKET PO SCH (10:29)
[2023-03-06 14:14] LABS: BASO # 0.1 10^3/uL (0.0-0.2); BASO % 0.7 % (0.0-1.0); EOS % 0.2 % (0.0-3.0); HEMATOCRIT 37.1 % (42.0-52.0); LYMPH # 1.1 10^3/uL (1.5-5.0); LYMPH % 13.2 % (24.0-44.0); MEAN CORPUSCULAR HEMOGLOBIN 28.3 pg (27.0-33.0); MEAN CORPUSCULAR HGB CONC 32.3 g/dl (32.0-36.5); MEAN CORPUSCULAR VOLUME 87.5 fl (80.0-96.0); MONO # 0.4 10^3/uL (0.0-0.8); MONO % 4.8 % (2.0-8.0); NEUTROPHILS % 80.8 % (36.0-66.0); PLATELET COUNT, AUTOMATED 492 10^3/uL (150-450); RED BLOOD COUNT 4.24 10^6/uL (4.30-6.10); WHITE BLOOD COUNT 8.7 10^3/uL (4.0-10.0)
[2023-03-06 14:37] LABS: ALBUMIN 2.7 G/DL (3.2-5.2); ALKALINE PHOSPHATASE 100 U/L (46-116); ALT/SGPT 11 U/L (7.0-40); AST/SGOT 16 U/L (<34); BILIRUBIN,TOTAL 0.4 MG/DL (0.3-1.2); BLOOD UREA NITROGEN 14 MG/DL (9-23); CARBON DIOXIDE LEVEL 27 MMOL/L (20-31); CHLORIDE LEVEL 100 MMOL/L (98-107); CREATININE FOR GFR 0.66 MG/DL (0.70-1.30); GLOMERULAR FILTRATION RATE > 60.0 (>49); GLUCOSE, FASTING 129 MG/DL (74-106); POTASSIUM SERUM 4.4 MMOL/L (3.5-5.1); SODIUM LEVEL 136 MMOL/L (136-145); TOTAL PROTEIN 6.7 G/DL (5.7-8.2)
[2023-03-07 06:00] VITALS: BP 110/75; TEMP 97.7; O2SAT 83; O2SAT 97
[2023-03-07] MEDS: DONEPEZIL 5 MG TAB PO SCH (10:04)
[2023-03-07] MEDS: MIRALAX *UNIT DOSE* 17GM PACKET PO SCH (10:04)
[2023-03-07] MEDS: ENOXAPARIN 30MG/0.3ML SYRINGE (J1650 PER 10MG) SC SCH (10:05)
[2023-03-07] MEDS: CYANOCOBALAMIN 250 MCG TABLET PO SCH (10:05)
[2023-03-07 13:38] VITALS: BP 109/74; TEMP 97.2; O2SAT 98
[2023-03-08 05:55] VITALS: BP 103/71; TEMP 97.7; O2SAT 97
[2023-03-08] MEDS: DONEPEZIL 5 MG TAB PO SCH (10:27)
[2023-03-08] MEDS: CYANOCOBALAMIN 250 MCG TABLET PO SCH (10:27)
[2023-03-08] MEDS: MIRALAX *UNIT DOSE* 17GM PACKET PO SCH (10:27)
[2023-03-08] MEDS: ENOXAPARIN 30MG/0.3ML SYRINGE (J1650 PER 10MG) SC SCH (10:31)
[2023-03-08] MEDS: ACETAMINOPHEN TAB 650MG DOSE (2X325MG) PO PRN (17:16)
[2023-03-09] MEDS: ACETAMINOPHEN TAB 650MG DOSE (2X325MG) PO PRN (04:02)
[2023-03-09 04:40] VITALS: BP 110/79; TEMP 97.2; O2SAT 92
[2023-03-09] MEDS: MIRALAX *UNIT DOSE* 17GM PACKET PO SCH (09:38)
[2023-03-09] MEDS: DONEPEZIL 5 MG TAB PO SCH (09:38)
[2023-03-09] MEDS: ENOXAPARIN 30MG/0.3ML SYRINGE (J1650 PER 10MG) SC SCH (09:38)
[2023-03-09] MEDS: CYANOCOBALAMIN 250 MCG TABLET PO SCH (09:38)
[2023-03-10 05:00] VITALS: BP 107/75; TEMP 97; O2SAT 98
[2023-03-10] MEDS: CYANOCOBALAMIN 250 MCG TABLET PO SCH (08:56)
[2023-03-10] MEDS: DONEPEZIL 5 MG TAB PO SCH (08:56)
[2023-03-10] MEDS: ENOXAPARIN 30MG/0.3ML SYRINGE (J1650 PER 10MG) SC SCH (08:57)
[2023-03-10] MEDS: MIRALAX *UNIT DOSE* 17GM PACKET PO SCH (08:57)
[2023-03-10] MEDS: ACETAMINOPHEN TAB 650MG DOSE (2X325MG) PO PRN (08:57)
[2023-03-11 06:00] VITALS: BP 116/81; TEMP 97.2; O2SAT 93
[2023-03-11] MEDS: MIRALAX *UNIT DOSE* 17GM PACKET PO SCH (08:49)
[2023-03-11] MEDS: CYANOCOBALAMIN 250 MCG TABLET PO SCH (08:49)
[2023-03-11] MEDS: DONEPEZIL 5 MG TAB PO SCH (08:49)
[2023-03-11] MEDS: ENOXAPARIN 30MG/0.3ML SYRINGE (J1650 PER 10MG) SC SCH (08:50)
[2023-03-11] MEDS: ACETAMINOPHEN TAB 650MG DOSE (2X325MG) PO PRN (15:14)
[2023-03-12 05:33] VITALS: BP 110/67; TEMP 97; O2SAT 98
[2023-03-12] MEDS: DONEPEZIL 5 MG TAB PO SCH (08:36)
[2023-03-12] MEDS: ACETAMINOPHEN TAB 650MG DOSE (2X325MG) PO PRN ×2 (08:36→19:46)
[2023-03-12] MEDS: CYANOCOBALAMIN 250 MCG TABLET PO SCH (08:36)
[2023-03-12] MEDS: MIRALAX *UNIT DOSE* 17GM PACKET PO SCH (08:37)
[2023-03-12] MEDS: ENOXAPARIN 30MG/0.3ML SYRINGE (J1650 PER 10MG) SC SCH (08:37)
[2023-03-13 06:00] VITALS: BP 115/84; TEMP 97.9; O2SAT 97
[2023-03-13] MEDS: CYANOCOBALAMIN 250 MCG TABLET PO SCH (08:35)
[2023-03-13] MEDS: ENOXAPARIN 30MG/0.3ML SYRINGE (J1650 PER 10MG) SC SCH (08:35)
[2023-03-13] MEDS: DONEPEZIL 5 MG TAB PO SCH (08:35)
[2023-03-13] MEDS: MIRALAX *UNIT DOSE* 17GM PACKET PO SCH (08:35)
[2023-03-14 06:00] VITALS: BP 115/86; TEMP 97.7; O2SAT 94
[2023-03-14 07:15] VITALS: BP 114/81; TEMP 97.5; O2SAT 98
[2023-03-14] MEDS: MIRALAX *UNIT DOSE* 17GM PACKET PO SCH (09:40)
[2023-03-14] MEDS: ENOXAPARIN 30MG/0.3ML SYRINGE (J1650 PER 10MG) SC SCH (09:41)
[2023-03-14] MEDS: DONEPEZIL 5 MG TAB PO SCH (09:41)
[2023-03-14] MEDS: CYANOCOBALAMIN 250 MCG TABLET PO SCH (09:44)
[2023-03-15 06:00] VITALS: BP 108/74; TEMP 97.2; O2SAT 95
[2023-03-15] MEDS: ENOXAPARIN 30MG/0.3ML SYRINGE (J1650 PER 10MG) SC SCH (08:27)
[2023-03-15] MEDS: DONEPEZIL 5 MG TAB PO SCH (08:27)
[2023-03-15] MEDS: CYANOCOBALAMIN 250 MCG TABLET PO SCH (08:27)
[2023-03-15] MEDS: MIRALAX *UNIT DOSE* 17GM PACKET PO SCH (08:36)
[2023-03-16 06:00] VITALS: BP 115/65; TEMP 97; O2SAT 96
[2023-03-16] MEDS: ACETAMINOPHEN TAB 650MG DOSE (2X325MG) PO PRN (08:39)
[2023-03-16] MEDS: MIRALAX *UNIT DOSE* 17GM PACKET PO SCH (08:39)
[2023-03-16] MEDS: DONEPEZIL 5 MG TAB PO SCH (08:39)
[2023-03-16] MEDS: ENOXAPARIN 30MG/0.3ML SYRINGE (J1650 PER 10MG) SC SCH (08:39)
[2023-03-16] MEDS: CYANOCOBALAMIN 250 MCG TABLET PO SCH (08:39)
[2023-03-17] MEDS ORDERED: PILL CUTTER 1 EACH XX ONE (00:17)
[2023-03-17] MEDS: LORazepam 0.5 MG TAB PO PRN (00:20)
[2023-03-17 07:03] VITALS: BP 107/71; TEMP 97; O2SAT 95
[2023-03-17] MEDS: ENOXAPARIN 30MG/0.3ML SYRINGE (J1650 PER 10MG) SC SCH (08:49)
[2023-03-17] MEDS: DONEPEZIL 5 MG TAB PO SCH (08:49)
[2023-03-17] MEDS: CYANOCOBALAMIN 250 MCG TABLET PO SCH (08:49)
[2023-03-17] MEDS: MIRALAX *UNIT DOSE* 17GM PACKET PO SCH (08:49)
[2023-03-18 05:31] VITALS: BP 108/73; TEMP 97.5; O2SAT 100
[2023-03-18 07:35] VITALS: BP 111/78; TEMP 97.2; O2SAT 98
[2023-03-18] MEDS: MIRALAX *UNIT DOSE* 17GM PACKET PO SCH (08:22)
[2023-03-18] MEDS: DONEPEZIL 5 MG TAB PO SCH (08:25)
[2023-03-18] MEDS: CYANOCOBALAMIN 250 MCG TABLET PO SCH (08:25)
[2023-03-18] MEDS: ENOXAPARIN 30MG/0.3ML SYRINGE (J1650 PER 10MG) SC SCH (08:25)
[2023-03-19 05:48] VITALS: BP 111/73; TEMP 98.1; O2SAT 77
[2023-03-19] MEDS: MIRALAX *UNIT DOSE* 17GM PACKET PO SCH (07:19)
[2023-03-19] MEDS: DONEPEZIL 5 MG TAB PO SCH (09:43)
[2023-03-19] MEDS: ENOXAPARIN 30MG/0.3ML SYRINGE (J1650 PER 10MG) SC SCH (09:43)
[2023-03-19] MEDS: CYANOCOBALAMIN 250 MCG TABLET PO SCH (09:43)
[2023-03-20] MEDS: MIRALAX *UNIT DOSE* 17GM PACKET PO SCH (09:00)
[2023-03-20] MEDS: DONEPEZIL 5 MG TAB PO SCH (09:02)
[2023-03-20] MEDS: CYANOCOBALAMIN 250 MCG TABLET PO SCH (09:02)
[2023-03-20] MEDS: ENOXAPARIN 30MG/0.3ML SYRINGE (J1650 PER 10MG) SC SCH (09:02)
[2023-03-20 09:53] LABS: HEMATOCRIT 37.8 % (42.0-52.0); HEMOGLOBIN 12.1 g/dl (13.5-17.5); MEAN CORPUSCULAR HEMOGLOBIN 27.7 pg (27.0-33.0); MEAN CORPUSCULAR VOLUME 86.5 fl (80.0-96.0); PLATELET COUNT, AUTOMATED 517 10^3/uL (150-450); RED BLOOD COUNT 4.37 10^6/uL (4.30-6.10); WHITE BLOOD COUNT 7.4 10^3/uL (4.0-10.0)
[2023-03-20 10:23] LABS: BLOOD UREA NITROGEN 15 MG/DL (9-23); CALCIUM LEVEL 8.8 MG/DL (8.3-10.6); CARBON DIOXIDE LEVEL 27 MMOL/L (20-31); CHLORIDE LEVEL 100 MMOL/L (98-107); CREATININE FOR GFR 0.48 MG/DL (0.70-1.30); GLOMERULAR FILTRATION RATE > 60.0 (>49); GLUCOSE, FASTING 109 MG/DL (74-106); POTASSIUM SERUM 4.1 MMOL/L (3.5-5.1); SODIUM LEVEL 133 MMOL/L (136-145)
[2023-03-21 06:00] VITALS: BP 113/73; TEMP 97; O2SAT 98
[2023-03-21] MEDS: DONEPEZIL 5 MG TAB PO SCH (08:18)
[2023-03-21] MEDS: MIRALAX *UNIT DOSE* 17GM PACKET PO SCH (08:18)
[2023-03-21] MEDS: ENOXAPARIN 30MG/0.3ML SYRINGE (J1650 PER 10MG) SC SCH (08:19)
[2023-03-21] MEDS: CYANOCOBALAMIN 250 MCG TABLET PO SCH (08:19)
[2023-03-21] MEDS: ACETAMINOPHEN TAB 650MG DOSE (2X325MG) PO PRN (20:04)
[2023-03-21] MEDS: LORazepam 0.5 MG TAB PO PRN (20:04)
[2023-03-22 06:00] VITALS: BP 117/73; TEMP 97.7; O2SAT 96
[2023-03-22] MEDS: MIRALAX *UNIT DOSE* 17GM PACKET PO SCH (09:00)
[2023-03-22] MEDS: ENOXAPARIN 30MG/0.3ML SYRINGE (J1650 PER 10MG) SC SCH (09:28)
[2023-03-22] MEDS: DONEPEZIL 5 MG TAB PO SCH (09:28)
[2023-03-22] MEDS: CYANOCOBALAMIN 250 MCG TABLET PO SCH (09:28)
[2023-03-23 05:00] VITALS: BP 102/74; TEMP 97; O2SAT 96
[2023-03-23] MEDS: DONEPEZIL 5 MG TAB PO SCH (08:15)
[2023-03-23] MEDS: ENOXAPARIN 30MG/0.3ML SYRINGE (J1650 PER 10MG) SC SCH (08:15)
[2023-03-23] MEDS: MIRALAX *UNIT DOSE* 17GM PACKET PO SCH (08:15)
[2023-03-23] MEDS: CYANOCOBALAMIN 250 MCG TABLET PO SCH (08:15)
[2023-03-23] MEDS: ACETAMINOPHEN TAB 650MG DOSE (2X325MG) PO PRN (14:06)
[2023-03-23] MEDS: LORazepam 0.5 MG TAB PO PRN (14:52)
[2023-03-24 06:00] VITALS: BP 115/80; TEMP 97.5; O2SAT 97
[2023-03-24] MEDS: MIRALAX *UNIT DOSE* 17GM PACKET PO SCH (09:03)
[2023-03-24] MEDS: CYANOCOBALAMIN 250 MCG TABLET PO SCH (09:03)
[2023-03-24] MEDS: ENOXAPARIN 30MG/0.3ML SYRINGE (J1650 PER 10MG) SC SCH (09:03)
[2023-03-24] MEDS: DONEPEZIL 5 MG TAB PO SCH (09:04)
[2023-03-25 06:00] VITALS: BP 105/68; TEMP 97.9; O2SAT 98
[2023-03-25] MEDS: MIRALAX *UNIT DOSE* 17GM PACKET PO SCH (08:40)
[2023-03-25] MEDS: CYANOCOBALAMIN 250 MCG TABLET PO SCH (08:40)
[2023-03-25] MEDS: DONEPEZIL 5 MG TAB PO SCH (08:40)
[2023-03-25] MEDS: ENOXAPARIN 30MG/0.3ML SYRINGE (J1650 PER 10MG) SC SCH (08:41)
[2023-03-25] MEDS: ACETAMINOPHEN TAB 650MG DOSE (2X325MG) PO PRN (20:03)
[2023-03-25] MEDS: diphenhydrAMINE 50MG CAP PO PRN (20:03)
[2023-03-25] MEDS: LORazepam 0.5 MG TAB PO PRN (22:34)
[2023-03-26 05:57] VITALS: TEMP 97.5; O2SAT 99
[2023-03-26] MEDS: MIRALAX *UNIT DOSE* 17GM PACKET PO SCH (08:40)
[2023-03-26] MEDS: CYANOCOBALAMIN 250 MCG TABLET PO SCH (08:40)
[2023-03-26] MEDS: ENOXAPARIN 30MG/0.3ML SYRINGE (J1650 PER 10MG) SC SCH (08:40)
[2023-03-26] MEDS: DONEPEZIL 5 MG TAB PO SCH (08:40)
[2023-03-26] MEDS: ACETAMINOPHEN TAB 650MG DOSE (2X325MG) PO PRN (10:52)
[2023-03-27] MEDS: LORazepam 0.5 MG TAB PO PRN (04:28)
[2023-03-27 04:45] VITALS: BP 104/71; TEMP 97.5; O2SAT 98
[2023-03-27] MEDS: MIRALAX *UNIT DOSE* 17GM PACKET PO SCH (08:23)
[2023-03-27] MEDS: CYANOCOBALAMIN 250 MCG TABLET PO SCH (08:28)
[2023-03-27] MEDS: DONEPEZIL 5 MG TAB PO SCH (08:28)
[2023-03-27] MEDS: ENOXAPARIN 30MG/0.3ML SYRINGE (J1650 PER 10MG) SC SCH (08:28)
[2023-03-27] MEDS: NYSTATIN 100,000 UNITS/GM TOPICAL PWD 15GM TOP SCH ×2 (15:00→20:15)
[2023-03-28] MEDS: ACETAMINOPHEN TAB 650MG DOSE (2X325MG) PO PRN (04:02)
[2023-03-28 06:00] VITALS: BP 105/63; TEMP 97.3; O2SAT 96
[2023-03-28 07:37] VITALS: BP 102/70; TEMP 97.3
[2023-03-28] MEDS: MIRALAX *UNIT DOSE* 17GM PACKET PO SCH (08:41)
[2023-03-28] MEDS: DONEPEZIL 5 MG TAB PO SCH (08:41)
[2023-03-28] MEDS: CYANOCOBALAMIN 250 MCG TABLET PO SCH (08:41)
[2023-03-28] MEDS: NYSTATIN 100,000 UNITS/GM TOPICAL PWD 15GM TOP SCH ×2 (08:42→21:20)
[2023-03-28] MEDS: ENOXAPARIN 30MG/0.3ML SYRINGE (J1650 PER 10MG) SC SCH (08:42)
[2023-03-28 08:58] VITALS: BP 102/70; TEMP 97.3
[2023-03-29 05:03] VITALS: BP 115/72; TEMP 97.7; O2SAT 96
[2023-03-29] MEDS: ENOXAPARIN 30MG/0.3ML SYRINGE (J1650 PER 10MG) SC SCH (08:06)
[2023-03-29] MEDS: DONEPEZIL 5 MG TAB PO SCH (08:06)
[2023-03-29] MEDS: CYANOCOBALAMIN 250 MCG TABLET PO SCH (08:06)
[2023-03-29] MEDS: MIRALAX *UNIT DOSE* 17GM PACKET PO SCH (08:07)
[2023-03-29] MEDS: NYSTATIN 100,000 UNITS/GM TOPICAL PWD 15GM TOP SCH ×2 (08:07→19:50)
[2023-03-29 13:52] LABS: BASO % 0.7 % (0.0-1.0); EOS % 0.2 % (0.0-3.0); HEMOGLOBIN 12.3 g/dl (13.5-17.5); LYMPH % 17.7 % (24.0-44.0); MEAN CORPUSCULAR HEMOGLOBIN 27.9 pg (27.0-33.0); MEAN CORPUSCULAR HGB CONC 32.4 g/dl (32.0-36.5); MEAN CORPUSCULAR VOLUME 86.2 fl (80.0-96.0); MONO # 0.5 10^3/uL (0.0-0.8); MONO % 8.7 % (2.0-8.0); NEUTROPHILS # 3.9 10^3/uL (1.5-8.5); NEUTROPHILS % 72.3 % (36.0-66.0); PLATELET COUNT, AUTOMATED 309 10^3/uL (150-450); RED BLOOD COUNT 4.41 10^6/uL (4.30-6.10); WHITE BLOOD COUNT 5.4 10^3/uL (4.0-10.0)
[2023-03-29 14:18] LABS: ERYTHROCYTE SEDIMENTATION RATE 130 mm/hr (0-20)
[2023-03-29 14:38] LABS: C REACTIVE PROTEIN QUANTITATIV 6.9 MG/DL (<1.0)
[2023-03-29 15:17] LABS: PROCALCITONIN 0.07 ng/ml
[2023-03-29] MEDS: ACETAMINOPHEN TAB 650MG DOSE (2X325MG) PO PRN (19:50)
[2023-03-30 02:00] VITALS: TEMP 98.1
[2023-03-30 05:51] VITALS: BP 104/74; TEMP 96.8; O2SAT 93
[2023-03-30] MEDS: DONEPEZIL 5 MG TAB PO SCH (08:48)
[2023-03-30] MEDS: MIRALAX *UNIT DOSE* 17GM PACKET PO SCH (08:49)
[2023-03-30] MEDS: CYANOCOBALAMIN 250 MCG TABLET PO SCH (08:49)
[2023-03-30] MEDS: ENOXAPARIN 30MG/0.3ML SYRINGE (J1650 PER 10MG) SC SCH (08:49)
[2023-03-30] MEDS: NYSTATIN 100,000 UNITS/GM TOPICAL PWD 15GM TOP SCH ×2 (08:55→20:01)
[2023-03-30] MEDS: LORazepam 0.5 MG TAB PO PRN (21:29)
[2023-03-31 05:28] VITALS: BP 114/66; TEMP 97.5; O2SAT 93
[2023-03-31] MEDS: MIRALAX *UNIT DOSE* 17GM PACKET PO SCH (09:00)
[2023-03-31] MEDS: CYANOCOBALAMIN 250 MCG TABLET PO SCH (09:00)
[2023-03-31] MEDS: DONEPEZIL 5 MG TAB PO SCH (09:00)
[2023-03-31] MEDS: NYSTATIN 100,000 UNITS/GM TOPICAL PWD 15GM TOP SCH ×2 (09:36→20:09)
[2023-03-31] MEDS: ENOXAPARIN 30MG/0.3ML SYRINGE (J1650 PER 10MG) SC SCH (09:36)
[2023-04-01 06:00] VITALS: BP 113/72; TEMP 98.8; O2SAT 98
[2023-04-01] MEDS: DONEPEZIL 5 MG TAB PO SCH (12:37)
[2023-04-01] MEDS: MIRALAX *UNIT DOSE* 17GM PACKET PO SCH (12:37)
[2023-04-01] MEDS: ENOXAPARIN 30MG/0.3ML SYRINGE (J1650 PER 10MG) SC SCH (12:37)
[2023-04-01] MEDS: NYSTATIN 100,000 UNITS/GM TOPICAL PWD 15GM TOP SCH ×2 (12:37→20:00)
[2023-04-01] MEDS: CYANOCOBALAMIN 250 MCG TABLET PO SCH (12:37)
[2023-04-01] MEDS: DIMETHICONE 2% OINTMENT(VANICREAM) 70GM TUBE TOP SCH (21:29)
[2023-04-02 06:00] VITALS: BP 112/74; TEMP 97.5; O2SAT 95
[2023-04-02] MEDS: ENOXAPARIN 30MG/0.3ML SYRINGE (J1650 PER 10MG) SC SCH (08:09)
[2023-04-02] MEDS: CYANOCOBALAMIN 250 MCG TABLET PO SCH (08:09)
[2023-04-02] MEDS: DONEPEZIL 5 MG TAB PO SCH (08:09)
[2023-04-02] MEDS: MIRALAX *UNIT DOSE* 17GM PACKET PO SCH (08:09)
[2023-04-02] MEDS: DIMETHICONE 2% OINTMENT(VANICREAM) 70GM TUBE TOP SCH ×2 (08:10→21:22)
[2023-04-02] MEDS: NYSTATIN 100,000 UNITS/GM TOPICAL PWD 15GM TOP SCH ×2 (08:10→21:22)
[2023-04-03 06:00] VITALS: BP 108/69; TEMP 97.3; O2SAT 95
[2023-04-03] MEDS: CYANOCOBALAMIN 250 MCG TABLET PO SCH (09:39)
[2023-04-03] MEDS: ACETAMINOPHEN TAB 650MG DOSE (2X325MG) PO PRN (09:39)
[2023-04-03] MEDS: DONEPEZIL 5 MG TAB PO SCH (09:39)
[2023-04-03] MEDS: ENOXAPARIN 30MG/0.3ML SYRINGE (J1650 PER 10MG) SC SCH (09:40)
[2023-04-03] MEDS: MIRALAX *UNIT DOSE* 17GM PACKET PO SCH (09:40)
[2023-04-03] MEDS: DIMETHICONE 2% OINTMENT(VANICREAM) 70GM TUBE TOP SCH ×2 (09:40→22:24)
[2023-04-03] MEDS: NYSTATIN 100,000 UNITS/GM TOPICAL PWD 15GM TOP SCH ×2 (09:40→22:24)
[2023-04-03] MEDS: NIRMATRELVIR/RITONAVIR CO-PACK (EMERGENCY USE AUTH) PO SCH ×2 (13:48→22:23)
[2023-04-04 05:21] VITALS: BP 112/67; TEMP 97.9; O2SAT 94
[2023-04-04] MEDS: DONEPEZIL 5 MG TAB PO SCH (08:57)
[2023-04-04] MEDS: CYANOCOBALAMIN 250 MCG TABLET PO SCH (08:57)
[2023-04-04] MEDS: MIRALAX *UNIT DOSE* 17GM PACKET PO SCH (08:57)
[2023-04-04] MEDS: ACETAMINOPHEN TAB 650MG DOSE (2X325MG) PO PRN ×2 (08:57→20:26)
[2023-04-04] MEDS: ENOXAPARIN 30MG/0.3ML SYRINGE (J1650 PER 10MG) SC SCH (08:58)
[2023-04-04] MEDS: NYSTATIN 100,000 UNITS/GM TOPICAL PWD 15GM TOP SCH ×2 (08:58→20:27)
[2023-04-04] MEDS: DIMETHICONE 2% OINTMENT(VANICREAM) 70GM TUBE TOP SCH ×2 (08:58→20:26)
[2023-04-04] MEDS: NIRMATRELVIR/RITONAVIR CO-PACK (EMERGENCY USE AUTH) PO SCH ×2 (08:59→20:26)
[2023-04-05 06:00] VITALS: BP 107/60; TEMP 97.5; O2SAT 96
[2023-04-05] MEDS: ENOXAPARIN 30MG/0.3ML SYRINGE (J1650 PER 10MG) SC SCH ×2 (08:37→08:49)
[2023-04-05] MEDS: NIRMATRELVIR/RITONAVIR CO-PACK (EMERGENCY USE AUTH) PO SCH ×2 (08:38→20:21)
[2023-04-05] MEDS: DONEPEZIL 5 MG TAB PO SCH (08:38)
[2023-04-05] MEDS: DIMETHICONE 2% OINTMENT(VANICREAM) 70GM TUBE TOP SCH ×2 (08:38→20:22)
[2023-04-05] MEDS: CYANOCOBALAMIN 250 MCG TABLET PO SCH (08:38)
[2023-04-05] MEDS: MIRALAX *UNIT DOSE* 17GM PACKET PO SCH (08:39)
[2023-04-05] MEDS: NYSTATIN 100,000 UNITS/GM TOPICAL PWD 15GM TOP SCH ×2 (08:39→20:22)
[2023-04-05] MEDS ORDERED: FLEET ENEMA PR PRN (11:20)
[2023-04-05 11:58] LABS: BASO % 0.1 % (0.0-1.0); EOS % 0.3 % (0.0-3.0); LYMPH # 1.1 10^3/uL (1.5-5.0); LYMPH % 14.4 % (24.0-44.0); MEAN CORPUSCULAR HEMOGLOBIN 26.7 pg (27.0-33.0); MEAN CORPUSCULAR HGB CONC 30.8 g/dl (32.0-36.5); MEAN CORPUSCULAR VOLUME 86.9 fl (80.0-96.0); MONO # 0.4 10^3/uL (0.0-0.8); MONO % 4.8 % (2.0-8.0); NEUTROPHILS # 6.3 10^3/uL (1.5-8.5); PLATELET COUNT, AUTOMATED 413 10^3/uL (150-450); RED BLOOD COUNT 4.49 10^6/uL (4.30-6.10); WHITE BLOOD COUNT 7.9 10^3/uL (4.0-10.0)
[2023-04-05 12:06] LABS: ERYTHROCYTE SEDIMENTATION RATE > 130 mm/hr (0-20)
[2023-04-05 12:17] LABS: INR 1.27; PROTHROMBIN TIME 15.5 SECONDS (12.5-14.5)
[2023-04-05 12:18] LABS: PARTIAL THROMBOPLASTIN TIME 30.2 SECONDS (24.8-34.2)
[2023-04-05 12:19] LABS: BLOOD UREA NITROGEN 23 MG/DL (9-23); CALCIUM LEVEL 8.6 MG/DL (8.3-10.6); CARBON DIOXIDE LEVEL 29 MMOL/L (20-31); CHLORIDE LEVEL 111 MMOL/L (98-107); GLOMERULAR FILTRATION RATE > 60.0 (>49); GLUCOSE, FASTING 132 MG/DL (74-106); POTASSIUM SERUM 3.8 MMOL/L (3.5-5.1); SODIUM LEVEL 148 MMOL/L (136-145)
[2023-04-05] MEDS ORDERED: RIVAROXABAN 10MG TAB (XARELTO) PO SCH (18:00)
[2023-04-05] MEDS: SENOKOT S TAB PO SCH (20:21)
[2023-04-06 05:08] VITALS: BP 111/79; TEMP 97.5; O2SAT 95
[2023-04-06] MEDS: MIRALAX *UNIT DOSE* 17GM PACKET PO SCH (09:00)
[2023-04-06] MEDS: NIRMATRELVIR/RITONAVIR CO-PACK (EMERGENCY USE AUTH) PO SCH ×2 (09:56→21:10)
[2023-04-06] MEDS: CYANOCOBALAMIN 250 MCG TABLET PO SCH (09:56)
[2023-04-06] MEDS: DONEPEZIL 5 MG TAB PO SCH (09:56)
[2023-04-06] MEDS: NYSTATIN 100,000 UNITS/GM TOPICAL PWD 15GM TOP SCH ×2 (09:57→21:08)
[2023-04-06] MEDS: DIMETHICONE 2% OINTMENT(VANICREAM) 70GM TUBE TOP SCH ×2 (09:57→21:08)
[2023-04-06] MEDS: SENOKOT S TAB PO SCH (21:07)
[2023-04-07 06:00] VITALS: BP 109/74; TEMP 97.2; O2SAT 96
[2023-04-07] MEDS: MIRALAX *UNIT DOSE* 17GM PACKET PO SCH (08:26)
[2023-04-07] MEDS: DIMETHICONE 2% OINTMENT(VANICREAM) 70GM TUBE TOP SCH ×2 (08:27→21:11)
[2023-04-07] MEDS: ACETAMINOPHEN TAB 650MG DOSE (2X325MG) PO PRN (08:28)
[2023-04-07] MEDS: DONEPEZIL 5 MG TAB PO SCH (08:28)
[2023-04-07] MEDS: CYANOCOBALAMIN 250 MCG TABLET PO SCH (08:28)
[2023-04-07] MEDS: NIRMATRELVIR/RITONAVIR CO-PACK (EMERGENCY USE AUTH) PO SCH ×2 (08:28→21:10)
[2023-04-07] MEDS: diphenhydrAMINE 50MG CAP PO PRN (08:28)
[2023-04-07] MEDS: NYSTATIN 100,000 UNITS/GM TOPICAL PWD 15GM TOP SCH ×2 (08:33→21:11)
[2023-04-07] MEDS: SENOKOT S TAB PO SCH (21:10)
[2023-04-08 06:54] VITALS: BP 109/73; TEMP 97.5; O2SAT 97
[2023-04-08] MEDS: DONEPEZIL 5 MG TAB PO SCH (09:36)
[2023-04-08] MEDS: MIRALAX *UNIT DOSE* 17GM PACKET PO SCH (09:36)
[2023-04-08] MEDS: CYANOCOBALAMIN 250 MCG TABLET PO SCH (09:36)
[2023-04-08] MEDS: DIMETHICONE 2% OINTMENT(VANICREAM) 70GM TUBE TOP SCH ×2 (09:36→20:21)
[2023-04-08] MEDS: ACETAMINOPHEN TAB 650MG DOSE (2X325MG) PO PRN ×2 (09:36→15:03)
[2023-04-08] MEDS: NYSTATIN 100,000 UNITS/GM TOPICAL PWD 15GM TOP SCH ×2 (09:37→20:21)
[2023-04-08] MEDS: SENOKOT S TAB PO SCH (20:20)
[2023-04-09 06:40] VITALS: BP 106/73; TEMP 97.3; O2SAT 96
[2023-04-09] MEDS: CYANOCOBALAMIN 250 MCG TABLET PO SCH (08:29)
[2023-04-09] MEDS: DONEPEZIL 5 MG TAB PO SCH (08:29)
[2023-04-09] MEDS: MIRALAX *UNIT DOSE* 17GM PACKET PO SCH (08:29)
[2023-04-09] MEDS: NYSTATIN 100,000 UNITS/GM TOPICAL PWD 15GM TOP SCH ×2 (08:30→20:11)
[2023-04-09] MEDS: ACETAMINOPHEN TAB 650MG DOSE (2X325MG) PO PRN (08:30)
[2023-04-09] MEDS: DIMETHICONE 2% OINTMENT(VANICREAM) 70GM TUBE TOP SCH ×2 (08:30→20:11)
[2023-04-09] MEDS: SENOKOT S TAB PO SCH (20:11)
[2023-04-10 06:00] VITALS: BP 112/58; TEMP 97.3; O2SAT 98
[2023-04-10] MEDS: CYANOCOBALAMIN 250 MCG TABLET PO SCH (09:52)
[2023-04-10] MEDS: MIRALAX *UNIT DOSE* 17GM PACKET PO SCH (09:52)
[2023-04-10] MEDS: DONEPEZIL 5 MG TAB PO SCH (09:52)
[2023-04-10] MEDS: NYSTATIN 100,000 UNITS/GM TOPICAL PWD 15GM TOP SCH ×2 (09:53→20:22)
[2023-04-10] MEDS: DIMETHICONE 2% OINTMENT(VANICREAM) 70GM TUBE TOP SCH ×2 (09:53→20:23)
[2023-04-10] MEDS: SENOKOT S TAB PO SCH (20:19)
[2023-04-11 06:00] VITALS: BP 108/74; TEMP 97.3; O2SAT 97
[2023-04-11] MEDS: CYANOCOBALAMIN 250 MCG TABLET PO SCH (08:44)
[2023-04-11] MEDS: DONEPEZIL 5 MG TAB PO SCH (08:44)
[2023-04-11] MEDS: MIRALAX *UNIT DOSE* 17GM PACKET PO SCH (08:44)
[2023-04-11] MEDS: NYSTATIN 100,000 UNITS/GM TOPICAL PWD 15GM TOP SCH ×2 (08:44→20:28)
[2023-04-11] MEDS: DIMETHICONE 2% OINTMENT(VANICREAM) 70GM TUBE TOP SCH ×2 (08:45→20:28)
[2023-04-11] MEDS: SENOKOT S TAB PO SCH (20:28)
[2023-04-12 06:00] VITALS: BP 103/72; TEMP 97.2; O2SAT 97
[2023-04-12] MEDS: NYSTATIN 100,000 UNITS/GM TOPICAL PWD 15GM TOP SCH (08:58)
[2023-04-12] MEDS: MIRALAX *UNIT DOSE* 17GM PACKET PO SCH (08:58)
[2023-04-12] MEDS: DIMETHICONE 2% OINTMENT(VANICREAM) 70GM TUBE TOP SCH (08:58)
[2023-04-12] MEDS: DONEPEZIL 5 MG TAB PO SCH (08:59)
[2023-04-12] MEDS: CYANOCOBALAMIN 250 MCG TABLET PO SCH (08:59)
[2023-04-12] MEDS ORDERED: ATIV1TAB10 PO (11:28)
[2023-04-12] MEDS ORDERED: SENN-52 PO (11:28)
[2023-04-12] MEDS ORDERED: HALO5TAB33 PO (11:28)
[2023-04-12] MEDS ORDERED: NYST10006 TOP (11:28)
[2023-04-12] MEDS ORDERED: DIPH50CA PO (11:28)
[2023-04-12] MEDS ORDERED: VITA250T7 PO (11:28)
[2023-04-12] MEDS ORDERED: ARIC1TAB PO (11:28)
== END 2023-04-12 12:38 | DRG 42 ==
LOC: EDBD 10:30 → M ED 10:30 → M ED INP 14:10 → ENRESERV 14:24 → M MSPAV 14:54
PROVIDERS: ADMIT Family Medicine; ATTEND Internal Medicine Nephrology
PROC: 009U3ZX Drainage of Spinal Canal, Percutaneous Approach, Diagnostic (ICD-10-PCS; principal; 2023-02-17 11:00)
DX: G30.9 Alzheimer's disease, unspecified (principal); U07.1 COVID-19; E43 Unspecified severe protein-calorie malnutrition; G92.8 Other toxic encephalopathy; F01.52 Vascular dementia, unspecified severity, with psychotic disturbance; K76.82 Hepatic encephalopathy; F02.80 Dementia in other diseases classified elsewhere, unspecified severity, without behavioral disturbance, psychotic disturbance, mood disturbance, and anxiety; E53.8 Deficiency of other specified B group vitamins; R33.9 Retention of urine, unspecified; K59.00 Constipation, unspecified; N39.0 Urinary tract infection, site not specified; Z91.013 Allergy to seafood; Z79.899 Other long term (current) drug therapy; S82.091D Other fracture of right patella, subsequent encounter for closed fracture with routine healing; W55.8 Contact with other mammals

== ENCOUNTER 2023-04-14 08:54 | Inpatient (IN) | payer OTHER, MEDICAID ==
[~2023-04-14] VITALS: Ht 180.3 cm; Wt 53.9 kg
[~2023-04-14 08:54] MED LIST changes: +ARIC1TAB PO; +ATIV1TAB10 PO; +DIPH50CA PO; +GABA-282; +GABA-282 PO; +HALO5TAB33 PO; +MAGN400T2 PO; +NYST10006 TOP; +POTA99TA14 PO; +SENN-52 PO; +VITA250T7 PO
[2023-04-14] MEDS ORDERED: BARICITINIB 2MG TABLET (OLUMIANT) FOR EUA PO SCH (09:00)
[2023-04-14] MEDS ORDERED: cefTRIAXone SOD 2 GM in D5W MINI-BAG PLUS 50 ML IV ONE (09:20)
[2023-04-14] MEDS ORDERED: NS 1,440 ML in IV 1 EA IV ONE (09:20)
[2023-04-14] MEDS ORDERED: IPRATROPIUM 0.5MG/ALBUTEROL 2.5MG INH SOL UD 3ML (DUONEB) NEB ONE (09:50)
[2023-04-14 10:19] LABS: VENOUS BASE EXCESS -5.8 (-2.0-2.0); VENOUS HCO3 19.3 MMOL/L (23.0-27.0); VENOUS O2 SATURATION 93.1 % (60.0-80.0); VENOUS PARTIAL PRESSURE CO2 36.7 mmHg (38.0-50.0); VENOUS PARTIAL PRESSURE O2 74.7 mmHg (30.0-50.0); VENOUS PH 7.338 UNITS (7.330-7.430); VENOUS STANDARD HCO3 19.7 MMOL/L; VENOUS TOTAL CO2 20.4 MMOL/L (24.0-28.0)
[2023-04-14 10:27] LABS: HEMATOCRIT 47.7 % (42.0-52.0); HEMOGLOBIN 14.5 g/dl (13.5-17.5); MEAN CORPUSCULAR HEMOGLOBIN 26.6 pg (27.0-33.0); MEAN CORPUSCULAR HGB CONC 30.4 g/dl (32.0-36.5); MEAN CORPUSCULAR VOLUME 87.5 fl (80.0-96.0); PLATELET COUNT, AUTOMATED 605 10^3/uL (150-450); RED BLOOD COUNT 5.45 10^6/uL (4.30-6.10); WHITE BLOOD COUNT 11.4 10^3/uL (4.0-10.0)
[2023-04-14 10:49] LABS: LYMPHOCYTES 14 % (16-44); MONOCYTES 1 % (0-5); NEUTROPHILS 50 % (28-66); PLATELET ESTIMATE INCREASED (NORMAL)
[2023-04-14 10:50] LABS: ANISOCYTOSIS 2+; HELMET CELLS 1+; HYPOCHROMASIA 1+; TEAR DROP CELLS 1+
[2023-04-14 10:51] LABS: POIKILOCYTOSIS 1+; STOMATOCYTES 1+
[2023-04-14 10:53] LABS: ALBUMIN 2.1 G/DL (3.2-5.2); ALKALINE PHOSPHATASE 107 U/L (46-116); ALT/SGPT 14 U/L (7.0-40); AST/SGOT 47 U/L (<34); BILIRUBIN,DIRECT 0.4 MG/DL (<0.4); BILIRUBIN,TOTAL 0.8 MG/DL (0.3-1.2); BLOOD UREA NITROGEN 37 MG/DL (9-23); CALCIUM LEVEL 10.1 MG/DL (8.3-10.6); CARBON DIOXIDE LEVEL 21 MMOL/L (20-31); CHLORIDE LEVEL 112 MMOL/L (98-107); CREATININE FOR GFR 1.97 MG/DL (0.70-1.30); GLOMERULAR FILTRATION RATE 37.1 (>49); GLUCOSE, FASTING 111 MG/DL (74-106); SODIUM LEVEL 152 MMOL/L (136-145); TOTAL PROTEIN 6.7 G/DL (5.7-8.2)
[2023-04-14 10:55] LABS: OSMOLALITY SERUM 325 MOSM/KG (275-295)
[2023-04-14 10:56] LABS: THYROID STIMULATING HORMONE 3.296 uIU/ML (0.55-4.78)
[2023-04-14] MEDS ORDERED: AZITHROMYCIN INJ 500 MG, VIAL MATE ADAPTER 1 EACH in D5W 250 ML IV ONE (11:00)
[2023-04-14] MEDS ORDERED: MED REC IN PROGRESS XX SCH ×2 (11:35→12:25)
[2023-04-14] MEDS ORDERED: MOM 30ML SUSPENSION UDC PO PRN (13:10)
[2023-04-14] MEDS ORDERED: ACETAMINOPHEN TAB 650MG DOSE (2X325MG) PO PRN (13:10)
[2023-04-14] MEDS ORDERED: PIPERACILLIN/TAZOBACTAM SOD 4.5 GM in D5W MINI-BAG PLUS 50 ML IV SCH (13:10)
[2023-04-14] MEDS ORDERED: D5W/0.45% SODIUM CHLORIDE 1,000 ML IV SCH (13:20)
[2023-04-14] MEDS ORDERED: VANCOMYCIN HCL 750 MG in IV FLUID PLACE HOLDER 1 EA IV SCH (13:25)
[2023-04-14 14:21] LABS: PROCALCITONIN >50.00 ng/ml
[2023-04-14 14:41] LABS: PLATELET COUNT, AUTOMATED 465 10^3/uL (150-450)
[2023-04-14 14:42] LABS: INR 1.53; PARTIAL THROMBOPLASTIN TIME 35.8 SECONDS (24.8-34.2); PROTHROMBIN TIME 17.9 SECONDS (12.5-14.5)
[2023-04-14 14:50] LABS: ABG HCO3 22.9 MMOL/L (22.0-26.0); ABG O2 SATURATION 94.9 % (95.0-99.0); ABG PARTIAL PRESSURE O2 74.8 mmHg (75.0-100.0); ABG STANDARD HCO3 24.5 MMOL/L. (22.0-26.0); ABG TOTAL CO2 23.9 MMOL/L (23.0-31.0); ABG pH (ARTERIAL) 7.472 UNITS (7.350-7.450)
[2023-04-14 14:55] LABS: D-DIMER QUANT 5.72 ug/mL (<0.5)
[2023-04-14] MEDS ORDERED: VANCOMYCIN HCL 1,000 MG, VIAL MATE ADAPTER 1 EACH in D5W 250 ML IV ONE (15:00)
[2023-04-14 15:12] LABS: ERYTHROCYTE SEDIMENTATION RATE > 130 mm/hr (0-20)
[2023-04-14] MEDS ORDERED: DIPH50CA PO (15:27)
[2023-04-14] MEDS ORDERED: FLEEENE12 PR (15:27)
[2023-04-14] MEDS ORDERED: BISA10SU20 PR (15:27)
[2023-04-14] MEDS ORDERED: ACET-907 PO (15:27)
[2023-04-14] MEDS ORDERED: MILKSUS3 PO (15:27)
[2023-04-14] MEDS ORDERED: HOME MED LIST COMPLETE! XX SCH (15:30)
[2023-04-14] MEDS ORDERED: LR 1,000 ML IV ONE (16:05)
[2023-04-14] MEDS: COMBIVENT RESPIMAT 100-20MCG INHALER 4GM INH SCH ×3 (16:21→23:33)
[2023-04-14 16:27] VITALS: O2SAT 93
[2023-04-14] MEDS ORDERED: CEFEPIME HCL 2 GM in D5W MINI-BAG PLUS 50 ML IV SCH (17:00)
[2023-04-14] MEDS: MEROPENEM INJ 1 GM in IV 1 EA IV SCH ×2 (17:31→19:07)
[2023-04-14] MEDS ORDERED: MEROPENEM INJ 1 GM in NS 100 ML IV SCH ×5 (18:00→18:30)
[2023-04-14 18:40] VITALS: BP 88/56; O2SAT 94
[2023-04-14 19:03] VITALS: BP 88/56; TEMP 97.5; O2SAT 94
[2023-04-14] MEDS: MIDODRINE 5 MG TAB PO SCH (19:40)
[2023-04-14 19:47] LABS: ALBUMIN 1.7 G/DL (3.2-5.2); BLOOD UREA NITROGEN 37 MG/DL (9-23); CALCIUM LEVEL 8.4 MG/DL (8.3-10.6); CARBON DIOXIDE LEVEL 26 MMOL/L (20-31); CHLORIDE LEVEL 113 MMOL/L (98-107); GLOMERULAR FILTRATION RATE > 60.0 (>49); GLUCOSE, FASTING 105 MG/DL (74-106); PHOSPHORUS LEVEL 3.8 MG/DL (2.4-5.1); SODIUM LEVEL 150 MMOL/L (136-145)
[2023-04-14] MEDS: IPRATROPIUM 0.5MG/ALBUTEROL 2.5MG INH SOL UD 3ML (DUONEB) NEB SCH ×2 (20:16→23:33)
[2023-04-14] MEDS: HEPARIN SOD (PORCINE) 5000UNITS/ML 1ML VIAL/SYRINGE SC SCH (20:51)
[2023-04-14] MEDS: D5W/0.45% SODIUM CHLORIDE 1,000 ML IV SCH (20:52)
[2023-04-14 23:20] VITALS: BP 84/50; TEMP 98.5; O2SAT 95
[2023-04-15] VITALS (7 sets, daily range): BP systolic 90–103; BP diastolic 52–71; TEMP 97.3–98.4; O2SAT 93–100
[2023-04-15] MEDS ORDERED: NS 500 ML IV ONE
[2023-04-15] MEDS: MEROPENEM INJ 1 GM in IV 1 EA IV SCH ×2 (01:41→02:20)
[2023-04-15] MEDS: IPRATROPIUM 0.5MG/ALBUTEROL 2.5MG INH SOL UD 3ML (DUONEB) NEB SCH ×6 (03:18→23:17)
[2023-04-15] MEDS: COMBIVENT RESPIMAT 100-20MCG INHALER 4GM INH SCH ×6 (03:18→23:17)
[2023-04-15] MEDS: D5W/0.45% SODIUM CHLORIDE 1,000 ML IV SCH (06:21)
[2023-04-15 06:35] LABS: HEMATOCRIT 35.9 % (42.0-52.0); MEAN CORPUSCULAR HEMOGLOBIN 26.6 pg (27.0-33.0); MEAN CORPUSCULAR HGB CONC 30.6 g/dl (32.0-36.5); MEAN CORPUSCULAR VOLUME 86.7 fl (80.0-96.0); RED BLOOD COUNT 4.14 10^6/uL (4.30-6.10)
[2023-04-15 06:37] LABS: PLATELET COUNT, AUTOMATED 338 10^3/uL (150-450)
[2023-04-15 06:51] LABS: ERYTHROCYTE SEDIMENTATION RATE > 130 mm/hr (0-20)
[2023-04-15 07:09] LABS: ALBUMIN 1.6 G/DL (3.2-5.2); ALKALINE PHOSPHATASE 94 U/L (46-116); ALT/SGPT 16 U/L (7.0-40); AST/SGOT 51 U/L (<34); BILIRUBIN,DIRECT 0.1 MG/DL (<0.4); BILIRUBIN,TOTAL 0.3 MG/DL (0.3-1.2); BLOOD UREA NITROGEN 29 MG/DL (9-23); CALCIUM LEVEL 8.8 MG/DL (8.3-10.6); CARBON DIOXIDE LEVEL 25 MMOL/L (20-31); CHLORIDE LEVEL 115 MMOL/L (98-107); CREATININE FOR GFR 0.74 MG/DL (0.70-1.30); GLOMERULAR FILTRATION RATE > 60.0 (>49); GLUCOSE, FASTING 140 MG/DL (74-106); PHOSPHORUS LEVEL 2.8 MG/DL (2.4-5.1); POTASSIUM SERUM 3.2 MMOL/L (3.5-5.1); SODIUM LEVEL 152 MMOL/L (136-145); TOTAL PROTEIN 5.1 G/DL (5.7-8.2)
[2023-04-15 07:38] LABS: LYMPHOCYTES 6 % (16-44); METAMYELOCYTES 1 % (0-0); MONOCYTES 2 % (0-5); NEUTROPHILS 88 % (28-66); PLATELET ESTIMATE NORMAL (NORMAL)
[2023-04-15 07:39] LABS: TOXIC GRANULATION 2+
[2023-04-15] MEDS: MIDODRINE 5 MG TAB PO SCH ×3 (08:00→16:00)
[2023-04-15] MEDS ORDERED: VANCOMYCIN HCL 750 MG, VIAL MATE ADAPTER 1 EACH in D5W 250 ML IV SCH (09:00)
[2023-04-15] MEDS: HEPARIN SOD (PORCINE) 5000UNITS/ML 1ML VIAL/SYRINGE SC SCH ×2 (09:59→20:49)
[2023-04-15] MEDS: D5W 1,000 ML IV SCH ×2 (09:59→20:49)
[2023-04-15] MEDS: VANCOMYCIN HCL 750 MG, VIAL MATE ADAPTER 1 EACH in D5W 250 ML IV SCH ×2 (09:59→20:49)
[2023-04-15] MEDS: PIPERACILLIN/TAZOBACTAM SOD 4.5 GM in D5W MINI-BAG PLUS 50 ML IV SCH ×3 (11:41→22:12)
[2023-04-15] MEDS: KCL 10MEQ/100ML SWI (KRUN) 10 MEQ in IV 1 EA IV SCH ×3 (13:04→15:23)
[2023-04-16] MEDS: IPRATROPIUM 0.5MG/ALBUTEROL 2.5MG INH SOL UD 3ML (DUONEB) NEB SCH ×5 (03:33→20:00)
[2023-04-16] MEDS: COMBIVENT RESPIMAT 100-20MCG INHALER 4GM INH SCH ×6 (03:33→23:47)
[2023-04-16 04:03] VITALS: BP 93/59; TEMP 97.9; O2SAT 98
[2023-04-16] MEDS: PIPERACILLIN/TAZOBACTAM SOD 4.5 GM in D5W MINI-BAG PLUS 50 ML IV SCH ×4 (04:11→21:25)
[2023-04-16 05:55] LABS: HEMATOCRIT 34.9 % (42.0-52.0); HEMOGLOBIN 10.7 g/dl (13.5-17.5); MEAN CORPUSCULAR HEMOGLOBIN 26.4 pg (27.0-33.0); MEAN CORPUSCULAR HGB CONC 30.7 g/dl (32.0-36.5); PLATELET COUNT, AUTOMATED 280 10^3/uL (150-450); RED BLOOD COUNT 4.06 10^6/uL (4.30-6.10); WHITE BLOOD COUNT 6.4 10^3/uL (4.0-10.0)
[2023-04-16 06:31] LABS: PROCALCITONIN 30.35 ng/ml
[2023-04-16 06:35] LABS: ALBUMIN 1.5 G/DL (3.2-5.2); BLOOD UREA NITROGEN 19 MG/DL (9-23); CALCIUM LEVEL 8.2 MG/DL (8.3-10.6); CARBON DIOXIDE LEVEL 25 MMOL/L (20-31); CHLORIDE LEVEL 109 MMOL/L (98-107); CREATININE FOR GFR 0.64 MG/DL (0.70-1.30); GLOMERULAR FILTRATION RATE > 60.0 (>49); GLUCOSE, FASTING 98 MG/DL (74-106); PHOSPHORUS LEVEL 1.7 MG/DL (2.4-5.1); POTASSIUM SERUM 3.3 MMOL/L (3.5-5.1); SODIUM LEVEL 143 MMOL/L (136-145)
[2023-04-16 06:57] LABS: ATYPICAL LYMPH 10 % (0-5); EOSINOPHILS 4 % (0-3); LYMPHOCYTES 2 % (16-44); METAMYELOCYTES 2 % (0-0); MONOCYTES 4 % (0-5); NEUTROPHILS 71 % (28-66); PLATELET ESTIMATE NORMAL (NORMAL)
[2023-04-16 06:58] LABS: HYPOCHROMASIA 1+
[2023-04-16 07:44] LABS: MAGNESIUM LEVEL 1.8 MG/DL (1.8-2.4)
[2023-04-16] MEDS: MIDODRINE 5 MG TAB PO SCH (08:00)
[2023-04-16 08:18] VITALS: BP 86/54; TEMP 97.6; O2SAT 97
[2023-04-16 08:26] VITALS: BP 90/56
[2023-04-16] MEDS: HEPARIN SOD (PORCINE) 5000UNITS/ML 1ML VIAL/SYRINGE SC SCH ×2 (08:49→20:24)
[2023-04-16] MEDS: D5W/LR 1,000 ML IV SCH ×2 (08:49→17:44)
[2023-04-16] MEDS: VANCOMYCIN HCL 750 MG, VIAL MATE ADAPTER 1 EACH in D5W 250 ML IV SCH (08:49)
[2023-04-16] MEDS ORDERED: POTASSIUM PHOSPHATE INJ 30 MMOL in D5W 500 ML IV ONE (10:00)
[2023-04-16] MEDS: MAG SULF 1GM/100ML (MAG RUN) 1 GM in IV 1 EA IV SCH ×2 (12:06→13:06)
[2023-04-16 13:00] VITALS: BP 90/60; O2SAT 97
[2023-04-16 16:00] VITALS: BP 96/54; TEMP 97.9; O2SAT 97
[2023-04-16 20:24] VITALS: BP 102/67; TEMP 97.8; O2SAT 96
[2023-04-17] VITALS (8 sets, daily range): BP systolic 91–120; BP diastolic 54–76; TEMP 97.9–98.3; O2SAT 92–96
[2023-04-17] MEDS: IPRATROPIUM 0.5MG/ALBUTEROL 2.5MG INH SOL UD 3ML (DUONEB) NEB SCH ×6 (02:37→20:00)
[2023-04-17] MEDS: PIPERACILLIN/TAZOBACTAM SOD 4.5 GM in D5W MINI-BAG PLUS 50 ML IV SCH ×4 (03:45→21:49)
[2023-04-17] MEDS: COMBIVENT RESPIMAT 100-20MCG INHALER 4GM INH SCH ×5 (03:50→20:44)
[2023-04-17] MEDS: D5W/LR 1,000 ML IV SCH ×2 (04:28→15:58)
[2023-04-17 07:33] LABS: HEMATOCRIT 33.2 % (42.0-52.0); HEMOGLOBIN 10.4 g/dl (13.5-17.5); MEAN CORPUSCULAR HEMOGLOBIN 26.1 pg (27.0-33.0); MEAN CORPUSCULAR HGB CONC 31.3 g/dl (32.0-36.5); MEAN CORPUSCULAR VOLUME 83.4 fl (80.0-96.0); PLATELET COUNT, AUTOMATED 301 10^3/uL (150-450); RED BLOOD COUNT 3.98 10^6/uL (4.30-6.10); WHITE BLOOD COUNT 7.6 10^3/uL (4.0-10.0)
[2023-04-17 08:18] LABS: ALBUMIN 1.4 G/DL (3.2-5.2); BLOOD UREA NITROGEN 10 MG/DL (9-23); CALCIUM LEVEL 7.7 MG/DL (8.3-10.6); CHLORIDE LEVEL 108 MMOL/L (98-107); CREATININE FOR GFR 0.53 MG/DL (0.70-1.30); GLOMERULAR FILTRATION RATE > 60.0 (>49); GLUCOSE, FASTING 107 MG/DL (74-106); PHOSPHORUS LEVEL 2.4 MG/DL (2.4-5.1); POTASSIUM SERUM 3.2 MMOL/L (3.5-5.1); SODIUM LEVEL 142 MMOL/L (136-145)
[2023-04-17 08:42] LABS: ATYPICAL LYMPH 7 % (0-5); LYMPHOCYTES 1 % (16-44); MONOCYTES 3 % (0-5); NEUTROPHILS 89 % (28-66); PLATELET ESTIMATE NORMAL (NORMAL)
[2023-04-17 08:48] LABS: CARBON DIOXIDE LEVEL 24 MMOL/L (20-31)
[2023-04-17] MEDS: HEPARIN SOD (PORCINE) 5000UNITS/ML 1ML VIAL/SYRINGE SC SCH ×2 (09:20→21:49)
[2023-04-17] MEDS: KCL 10MEQ/100ML SWI (KRUN) 10 MEQ in IV 1 EA IV SCH ×3 (11:51→14:01)
[2023-04-17 11:53] LABS: MAGNESIUM LEVEL 1.8 MG/DL (1.8-2.4)
[2023-04-17] MEDS ORDERED: E-Z-PAQUE 96% w/w SUSP 176GM BTL As Ordered ONE (12:12)
[2023-04-17] MEDS ORDERED: VARIBAR NECTAR 40% w/v 240ML SUSP BTL As Ordered ONE (12:12)
[2023-04-17] MEDS ORDERED: VARIBAR PUDDING 40% w/v 230ML TUBE As Ordered ONE (12:12)
[2023-04-17] MEDS ORDERED: BARIUM SULFATE 700 MG TABLET (E-Z-DISK) As Ordered ONE (12:13)
[2023-04-18] VITALS: BP 126/72; TEMP 98.1; O2SAT 92
[2023-04-18] MEDS: COMBIVENT RESPIMAT 100-20MCG INHALER 4GM INH SCH ×5 (00:58→15:07)
[2023-04-18 04:00] VITALS: BP 120/75; TEMP 98.2; O2SAT 96
[2023-04-18] MEDS: IPRATROPIUM 0.5MG/ALBUTEROL 2.5MG INH SOL UD 3ML (DUONEB) NEB SCH ×6 (04:00→20:00)
[2023-04-18] MEDS: PIPERACILLIN/TAZOBACTAM SOD 4.5 GM in D5W MINI-BAG PLUS 50 ML IV SCH ×3 (04:29→16:05)
[2023-04-18] MEDS ORDERED: D5W/0.9% SODIUM CHLORIDE 1,000 ML IV SCH (04:40)
[2023-04-18 06:30] LABS: BASO % 0.1 % (0.0-1.0); EOS % 0.4 % (0.0-3.0); HEMATOCRIT 35.2 % (42.0-52.0); LYMPH # 0.7 10^3/uL (1.5-5.0); LYMPH % 9.4 % (24.0-44.0); MEAN CORPUSCULAR HEMOGLOBIN 26.4 pg (27.0-33.0); MEAN CORPUSCULAR HGB CONC 31.3 g/dl (32.0-36.5); MEAN CORPUSCULAR VOLUME 84.4 fl (80.0-96.0); MONO # 0.2 10^3/uL (0.0-0.8); MONO % 3.3 % (2.0-8.0); NEUTROPHILS # 6.3 10^3/uL (1.5-8.5); NEUTROPHILS % 86.1 % (36.0-66.0); PLATELET COUNT, AUTOMATED 278 10^3/uL (150-450); RED BLOOD COUNT 4.17 10^6/uL (4.30-6.10); WHITE BLOOD COUNT 7.3 10^3/uL (4.0-10.0)
[2023-04-18 06:53] LABS: ALBUMIN 1.3 G/DL (3.2-5.2); BLOOD UREA NITROGEN 7 MG/DL (9-23); CALCIUM LEVEL 7.8 MG/DL (8.3-10.6); CARBON DIOXIDE LEVEL 25 MMOL/L (20-31); CHLORIDE LEVEL 111 MMOL/L (98-107); CREATININE FOR GFR 0.45 MG/DL (0.70-1.30); GLOMERULAR FILTRATION RATE > 60.0 (>49); GLUCOSE, FASTING 112 MG/DL (74-106); PHOSPHORUS LEVEL 2.4 MG/DL (2.4-5.1); POTASSIUM SERUM 3.1 MMOL/L (3.5-5.1); SODIUM LEVEL 145 MMOL/L (136-145)
[2023-04-18 06:59] LABS: PROCALCITONIN 4.32 ng/ml
[2023-04-18 07:13] LABS: ERYTHROCYTE SEDIMENTATION RATE 85 mm/hr (0-20)
[2023-04-18 08:00] VITALS: BP 104/69; TEMP 97.9; O2SAT 96
[2023-04-18] MEDS: HEPARIN SOD (PORCINE) 5000UNITS/ML 1ML VIAL/SYRINGE SC SCH (09:43)
[2023-04-18 12:00] VITALS: BP 110/67; TEMP 98.5; O2SAT 96
[2023-04-18 15:59] VITALS: BP 125/94; TEMP 97.5; O2SAT 91
[2023-04-18] MEDS ORDERED: BISACODYL 10MG SUPP PR PRN (17:45)
[2023-04-18] MEDS ORDERED: ONDANSETRON 4MG 2ML VIAL IV PRN (17:45)
[2023-04-18] MEDS ORDERED: SCOPOLAMINE 1MG TRANSDERMAL PATCH TOP PRN (17:45)
[2023-04-18] MEDS ORDERED: MORPHINE 2 MG/ML 1ML VIAL IV PRN (17:45)
[2023-04-18] MEDS ORDERED: ATROPINE SULFATE 1% OPHTH SOLN 2ML BTL SL PRN (17:45)
[2023-04-18] MEDS: LORazepam 2 MG/ML 1ML VIAL IV PRN (21:02)
[2023-04-19] MEDS: LORazepam 2 MG/ML 1ML VIAL IV PRN ×3 (01:29→13:29)
[2023-04-19] MEDS: IPRATROPIUM 0.5MG/ALBUTEROL 2.5MG INH SOL UD 3ML (DUONEB) NEB SCH ×2 (04:00)
== END 2023-04-19 14:24 | DRG 720 ==
LOC: EDBD 08:54 → M ED 08:54 → EDUNIT# 08:54 → M ED INP 13:07 → M PCU 18:28
PROVIDERS: ADMIT Student in an Organized Health Care Education/Training Program; ATTEND Student in an Organized Health Care Education/Training Program
DX: A41.9 Sepsis, unspecified organism (principal); U07.1 COVID-19; J96.01 Acute respiratory failure with hypoxia; J69.0 Pneumonitis due to inhalation of food and vomit; G93.41 Metabolic encephalopathy; L89.150 Pressure ulcer of sacral region, unstageable; N17.9 Acute kidney failure, unspecified; E87.20 Acidosis, unspecified; E87.0 Hyperosmolality and hypernatremia; E87.1 Hypo-osmolality and hyponatremia; R13.10 Dysphagia, unspecified; F02.80 Dementia in other diseases classified elsewhere, unspecified severity, without behavioral disturbance, psychotic disturbance, mood disturbance, and anxiety; F03.90 Unspecified dementia, unspecified severity, without behavioral disturbance, psychotic disturbance, mood disturbance, and anxiety; N39.0 Urinary tract infection, site not specified; Z51.5 Encounter for palliative care; Z91.013 Allergy to seafood; Z79.899 Other long term (current) drug therapy; Z66 Do not resuscitate